=== PATIENT | female | born 1945 | race Caucasian/White ===

== ENCOUNTER 2017-10-14 16:40 | Emergency (ER) | payer OTHER ==
--- OUTSIDE RECORDS SUMMARY | 2017-10-14 16:43 | XMS REPORT | Clinical Summary ---
:1945 Author Organization [facility] Address [address] [place] [address] Care Team Providers Name Role Phone Jai Hall MD Primary Care Provider Allergies Active Allergy Reactions Severity Noted Date Comments Adhesive Tape-Silicones 06/08/2017 Skin sensitivity=redness Sulfa (Sulfonamide Rash Low 09/03/2016 Antibiotics) Current Medications Prescription Sig. Disp. Refills Start Date End Date Status atorvastatin Take 40 mg by Active (LIPITOR) 40 MG mouth daily. tablet losartan-hydrochloro Take 1 tablet Active thiazide (HYZAAR) by mouth daily. 100-12.5 mg per tablet aspirin (ECOTRIN) 81 Take 81 mg by Active MG enteric coated mouth daily. tablet omega-3 acid ethyl Take 1 g by Active esters (LOVAZA) 1 mouth 2 (two) gram capsule times a day. cholecalciferol, Take 2,000 Active vitamin D3, (VITAMIN Units by mouth D3) 2,000 unit daily. capsule capsule omeprazole Take 40 mg by Active (PriLOSEC) 40 MG mouth daily. capsule L. Take 1 mg by Active ACIDOPHILUS/BIFIDO mouth daily. LONGUM (PROBIOTIC PEARLS ORAL) FOLIC Take by mouth. Active ACID/MULTIVIT-MIN/JA TEIN (CENTRUM SILVER ORAL) ASCORBATE CALCIUM Take by mouth. Active (VITAMIN C ORAL) multivitamins & Take by mouth Discontinued minerals-ferrous daily. 7 gluconate 9 mg iron/15 mL liquid CALCIUM Take 1 mg by Discontinued CARBONATE/VITAMIN D3 mouth daily. 8 (CALTRATE 600 + D ORAL) ascorbic Take 1 mg by Discontinued ceiu-uvinibss-iur-MS mouth daily. 7 M 1,000-1,000 mg powder effervescent in packet L. Take by mouth. Discontinued ACIDOPHILUS/PECTIN, 7 CITRUS (ACIDOPHILUS PROBIOTIC ORAL) metroNIDAZOLE Take 1 tablet 42 tablet 0 06/25/2017 Discontinued (FLAGYL) 500 MG (500 mg total) 8 tablet by mouth 3 (three) times a day for 14 days. levoFLOXacin Take 1 tablet 14 tablet 0 06/26/2017 Discontinued (LEVAQUIN) 750 MG (750 mg total) 8 tablet by mouth daily for 14 days. ondansetron ODT Take 1 tablet 60 tablet 1 06/25/2017 Discontinued (ZOFRAN ODT) 4 MG (4 mg total) by 8 disintegrating mouth every 8 tablet (eight) hours as needed for nausea or vomiting for up to 30 days. SUPREP BOWEL PREP Take 2 Bottles 354 mL 0 06/28/2017 KIT 17.5-3.13-1.6 (354 mL total) 8 gram recon soln by mouth once for 1 dose. Take as directed by physician traMADol (ULTRAM) 50 Take 1 tablet 25 tablet 0 07/09/2017 mg tablet (50 mg total) 8 by mouth every 6 (six) hours as needed for moderate pain for up to 5 days. Active Problems Problem Noted Date Abscess of sigmoid colon due to diverticulitis 07/06/2017 Diverticulitis of large intestine with abscess without bleeding 06/22/2017 Preop cardiovascular exam 06/10/2017 Essential hypertension 06/10/2017 HLD (hyperlipidemia) 06/10/2017 Encounters Date Type Specialty Care Team Description 08/23/2017 Procedure visit General Surgery Ulises Huff Diverticulitis of MD Hilario large intestine without perforation or abscess without bleeding (Primary Dx) 07/21/2017 Office Visit General Surgery Ulises Huff Diverticulitis sulaiman Rich MD large intestine with Alagugurusamy, abscess without Rosanne bleeding (Primary Dx) CHELSEY Munroe 07/20/2017 Orders Only General Surgery Ulises Huff MD 07/15/2017 Orders Only General Surgery Ulises Huff Diarrhea, unspecified MD Hilario type (Primary Dx) 07/06/2017 - Hospital Encounter General Surgery Ulises Huff Abscess of sigmoid 07/09/2017 MD Hilario colon due to diverticulitis 07/06/2017 Procedure Pass General Surgery 07/06/2017 Surgery General Surgery Ulises Huff ROBOT-ASSISTED MD Hilario LAPAROSCOPIC ANTERIOR COLON RESECTION WITH SPLENIC FLEXURE TAKEDOWN 06/28/2017 Orders Only General Surgery Ulises Huff MD 06/23/2017 Anesthesia Event General Surgery [facility] Liza smallwood, MARCY 06/22/2017 - Hospital Encounter Orthopedic Surgery Ruthie Gilliland Diverticulitis of large intestine with abscess without bleeding (Primary Dx); 06/25/2017 MD Chata Hypokalemia Evon Connolly MD 06/11/2017 Orders Only Cardiology Bell, Mack Cabezas MD 06/10/2017 Office Visit Cardiology Johan Means Preop cardiovascular exam ( Primary Dx); MD Kp Essential hypertension; Negrete Dalton Hyperlipidemia, unspecified hyperlipidemia type MD Daniel 06/09/2017 Transcribe Orders Cardiology Johan Means Undiagnosed disease MD Kp or syndrome present (Primary Dx) 06/08/2017 Pre-Admit Testing Pre-Admission Ulises Huff Preop testing Appointment Testing MD Hilario (Primary Dx) 04/29/2017 Orders Only General Surgery Ulises Huff MD 04/27/2017 Office Visit General Surgery Ulises Huff Diverticulitis of large intestine with abscess without bleeding (Primary Dx); MD Hilario Left lower quadrant abdominal tenderness with rebound tenderness after 10/13/2016 Immunizations Name Dates Previously Given Next Due FLUCELVAX QUAD PF (0.5mL syringe) 07/07/2017 Family History Medical History Relation Name Comments Heart attack Father age 53 Alzheimer's disease Mother Hyperlipidemia Sister age 70 Hypertension Sister age 70 Hyperlipidemia Sister age 70 Hypertension Sister age 70 Relation Name Status Comments Father age 53 Mother Sister age 70 Alive Sister age 70 Alive Social History Tobacco Use Types Packs/Day Years Used Date Never Smoker Smokeless Tobacco: Never Used Alcohol Use Drinks/Week oz/Week Comments No Sex Assigned at Date Recorded Not on file Last Filed Vital Signs Vital Sign Reading Time Taken Blood Pressure 96/60 07/21/2017 2:40 PM CRT Pulse 85 07/21/2017 2:40 PM CRT Temperature 36.5 C (97.7 F) 07/09/2017 12:45 PM CRT Respiratory Rate 18 07/09/2017 12:45 PM CRT Oxygen Saturation 94% 07/09/2017 12:45 PM CRT Inhaled Oxygen Concentration - - Weight 65.4 kg (144 lb 3 oz) 07/06/2017 6:54 AM CRT Height 165.1 cm (5' 5") 07/06/2017 6:54 AM CRT Body Mass Index 23.99 07/06/2017 6:54 AM CRT Plan of Treatment Date Type Specialty Care Team Description 02/01/2018 [place] [address] [facility] [address] [place] [address] Health Maintenance Due Date Last Done Comments COLONOSCOPY 1993 MAMMOGRAM 1993 SHINGRIX VACCINE (#1) 1993 ZOSTER VACCINE 2003 PNEUMOCOCCAL POLYSACCHARIDE VACCINE AGE 65 AND OVER 2008 PNEUMOCOCCAL-13 2008 INFLUENZA VACCINE 01/19/2018 07/07/2017 Procedures Procedure Name Priority Date/Time Associated Diagnosis Comments SD AN ELECTIVE Routine 07/06/2017 8:19 AM ENDOTRACHEAL AIRWAY CRT Procedure Note - Chris León CRNA - 07/06/2017 8:18 AM CRT Airway Date/Time: 07/06/2017 7:51 AM Performed by: CHRIS LEÓN Authorized by: GABI LIU Location: OR Urgency: Elective Difficult Airway: No Resident/VENDING MANAGER/AA: CHRIS LEÓN Performed by: resident/VENDING MANAGER/AA Preoxygenated with 100% O2: Yes Mask Ventilation: Easy mask Final Airway Type: Endotracheal airway Final Endotracheal Airway: ETT Cuffed: Yes Technique Used: Direct laryngoscopy Devices/Methods Used in Placement: Intubating stylet Insertion Site: Oral Blade Type: Levine Laryngoscope Blade/Videolaryngoscope Blade Size: 2 ETT Size (mm): 7.0 Cuff at minimum occlusion pressure: Yes Measured from: Lips ETT to Lips (cm): 21 Placement Verified by: CO2 detection, direct visualization and equal breath sounds Laryngoscopic view: Grade I - full view of glottis Rapid Sequence Induction (RSI): No Modified RSI: No Number of Attempts at Approach: 1 SIVI. ETT 7.0 placed with ease, no trauma. +etco2, no aspiration. Dentition unchanged. vss ROBOT-ASSISTED LAPAROSCOPIC 07/06/2017 7:30 AM CRT Abscess of sigmoid colon due ANTERIOR COLON RESECTION WITH to diverticulitis SPLENIC FLEXURE TAKEDOWN Case Notes XI, PINPOINT, AIR SEAL Special Needs XI, PINPOINT, AIR SEAL CONSULT TO OSTOMY Routine 07/06/2017 6:41 AM CARE NURSE CRT CV STRESS TEST Routine 06/10/2017 1:11 PM Undiagnosed disease Results for this CRT or syndrome present procedure are in the results section. after 10/13/2016 Results [facility] papsmear custom order (07/15/2017)Estimated GFR (07/09/2017 5:00 AM )Only the most recent of8 resultswithin the time period is included. Component Value Ref Range GFR Non Af Amer >90 mL/min/1.73 m2 GFR Af Amer >90 mL/min/1.73 m2 Comment: Chronic kidney disease: <60 mL/min/1.73m2 Kidney failure: <15 mL/min/1.73m2 The estimated GFR is calculated from the IDMS-traceable Modification of Diet in Renal Disease Equation. The accuracy of the calculation is poor when the creatinine is normal. Calculated values >90 mL/min/1.73m2 are not reported. This equation has not been validated in children (<18 years), women, the elderly (>70 years), or ethnic groups other than Caucasians and Americans. Specimen Performing Laboratory Plasma specimen [facility] DEPARTMENT OF PATHOLOGY AND GENOMIC MEDICINE [address] [place] [id number] CBC with platelet and differential (07/09/2017 5:00 AM)Only the most recent of8 resultswithin the time period is included. Component Value Ref Range WBC 7.13 4.50 - 11.00 k/uL RBC 3.61 (L) 4.20 - 5.50 m/uL HGB 10.7 (L) 12.0 - 16.0 g/dL HCT 32.6 (L) 37.0 - 47.0 % MCV 90.3 82.0 - 100.0 fL MCH 29.6 27.0 - 34.0 pg MCHC 32.8 31.0 - 37.0 g/dL RDW - SD 52.3 37.0 - 55.0 fL MPV 10.7 8.8 - 13.2 fL Platelet count 312 150 - 400 k/uL Nucleated RBC 0.00 /100 WBC Neutrophils 60.1 39.0 - 69.0 % Lymphocytes 24.1 (L) 25.0 - 45.0 % Monocytes 10.0 0.0 - 10.0 % Eosinophils 5.3 (H) 0.0 - 5.0 % Basophils 0.4 0.0 - 1.0 % Immature granulocytes 0.1Comment: "Immature granulocytes" 0.0 - 1.0 % (promyelocytes, myelocytes, metamyelocytes) Specimen Performing Laboratory Blood [facility] DEPARTMENT OF PATHOLOGY AND [address] [address] Phosphorus level (07/09/2017 5:00 AM)Only the most recent of3 resultswithin the time period is included. Component Value Ref Range Phosphorus 3.2 2.4 - 4.5 mg/dL Specimen Performing Laboratory Plasma specimen [facility] DEPARTMENT PATHOLOGY AND [address] [address] Magnesium level (07/09/2017 5:00 AM)Only the most recent of3 resultswithin the time period is included. Component Value Ref Range Magnesium 1.8 1.6 - 2.4 mg/dL Specimen Performing Laboratory Plasma specimen [facility] DEPARTMENT PATHOLOGY AND [address] [address] Basic metabolic panel (07/09/2017 5:00 AM)Only the most recent of6 resultswithin the time period is included. Component Value Ref Range Sodium 142 135 - 148 mEq/L Potassium 3.2 (L) 3.5 - 5.0 mEq/L Chloride 101 98 - 112 mEq/L CO2 31 24 - 31 mEq/L Anion gap 10 7 - 15 mEq/L Comment: Starting from September , anion gap calculation no longer incorporates potassium. Please note the change. BUN 6 (L) 8 - 23 mg/dL Creatinine 0.6 0.5 - 0.9 mg/dL Glucose 84 65 - 99 mg/dL Calcium 8.6 (L) 8.8 - 10.2 mg/dL Specimen Performing Laboratory Plasma specimen [facility] DEPARTMENT PATHOLOGY AND [address] [address] Partial thromboplastin time, activated (07/08/2017 4:20 AM) Component Value Ref Range PTT 27.5 23.0 - 36.0 sec Comment: PTT therapeutic range for unfractionated heparin is 61.0-112.0 seconds which corresponds to Anti-Xa 0.3-0.7 U/ml. Specimen Performing Laboratory Blood [facility] DEPARTMENT OF PATHOLOGY AND [facility] MEDICINE [address] [place] [address] Prothrombin time with INR (07/08/2017 4:20 AM) Component Value Ref Range Prothrombin time 13.3 12.0 - 15.0 sec INR 1.0 Comment: The International Normalized Ratio (INR) is a therapeutic monitoring tool for patients who are stable on oral anticoagulant therapy. An INR of 2.0-3.0 is suggested for deep vein thrombosis/pulmonary embolism. Specimen Performing Laboratory Blood [facility] DEPARTMENT OF PATHOLOGY AND [address] [address] Surgical pathology request (07/06/2017 1:50 PM) Component Value Ref Range Surgical pathology report See link below for PDF Lab Report Result status This is Final Report to [id number] [facility] [place] [address] Type and screen (07/06/2017 7:50 AM)Only the most recent of2 resultswithin the time period is included. Component Value Ref Range ABO grouping A Rh type POS Antibody screen (gel) NEG Specimen Performing Laboratory [facility] DEPARTMENT PATHOLOGY [address] [address] Vancomycin level, trough (06/24/2017 8:40 PM) Component Value Ref Range Vancomycin, trough 6.6 (L) 10.0 - 20.0 ug/mL Comment: Therapeutic Ranges: Peak 30.0 - 40.0 ug/mL Vuxqtn85.0 - 20.0 ug/mL Specimen Performing Laboratory Serum [facility] DEPARTMENT OF PATHOLOGY AND [facility] MEDICINE [address] [place] [id number] Manual differential (06/23/2017 4:00 AM)Only the most recent of2 resultswithin the time period is included. Component Value Ref Range Manual differential PERFORMED Neutrophils 69.0 39.0 - 69.0 % Lymphocytes 20.0 (L) 25.0 - 45.0 % Monocytes 11.0 (H) 0.0 - 10.0 % Eosinophils 0.0 0.0 - 5.0 % Basophils 0.0 0.0 - 1.0 % Metamyelocytes 0 % Promyelocytes 0 % Platelet slide review Caitlin adequate Toxic granulation Slight Anisocytosis Moderate Ovalocytes Moderate Enlarged platelets Moderate (A) Giant platelets Occasional Specimen Performing Laboratory [facility] DEPARTMENT OF PATHOLOGY AND GENOMIC MEDICINE [address] [place] [address] CT Abdomen Pelvis W Contrast (06/22/2017 3:00 PM) Specimen Performing Laboratory [facility] [address] [place] [address] Narrative EXAMINATION:CT ABDOMEN PELVIS W CONTRAST CLINICAL HISTORY:hx diverticultis with [address] 04 16 17 TECHNIQUE: Multiple axial images of the abdomen and pelvis were obtained following intravenous administration of iodinated contrast. Sagittal and coronal computerized reformatted images were also obtained..All CT images were acquired using radiation dose lowering technique with automated exposure control and / or iterative reconstruction. COMPARISON:None IMPRESSION: ABDOMEN: 1. Small zone of mucous plugging in the posterior basal subsegmental bronchi of the right lower lobe, with adjacent airspace opacity, indicating aspiration and associated mild pneumonia. Follow-up to ensure resolution recommended. Mild scarring in the left lung base which is otherwise rolled. 2.A 10 cm long segment of the majority of the sigmoid demonstrating wall thickness, diverticula, and adjacent inflammation and free fluid, indicating acute diverticulitis. As well, there is a mural abscess along the mesenteric wall and proximal sigmoid colon measuring 2.8 cm, series 2 image 109, and series 301 images 31 and 32. Smaller mural abscesses are noted more distally in the sigmoid colon, measuring 2.5 x 1.3 cm each, series 2 image 110. No drainable fluid collection is identified. Follow- up to ensure complete resolution is recommended. 3.The inflammatory change barely abuts the posterior wall of the urinary bladder towards the dome, with mild reactive wall thickening, though there is no gas present within the urinary bladder lumen to indicate a colovesical fistula at this time. Follow-up to ensure resolution of the wall thickening is recommended however. 4.Punctate radiodensities in the right lower quadrant abdomen compatible with appendectomy. Bowel loop show no evidence of obstruction. 5.Liver mildly enlarged, 20 cm in length, without focal lesion identified. Cholecystectomy. 6.Prominence of the intrahepatic bile ducts especially the left hepatic lobe, and the common bile duct is nondilated measuring 10.5 mm. This may be reservoir effect postcholecystectomy, though correlation with LFTs advised. Ectasia of the pancreatic duct measuring 3.5 mm, likely from senescence. 7.Pancreas otherwise unremarkable. Spleen, adrenal glands demonstrate nothing unusual. 8.The abdominal aorta is heavily calcified, though nonaneurysmal. 9.Tiny cyst or benign angiomyolipoma in the mid left kidney. A simple cyst in the upper pole right kidney measuring 3.2 cm. No hydronephrosis on either side. PELVIS: 1. Small amount of free fluid in the pelvis related to the acute diverticulitis. Some shotty periaortic lymph nodes are likely reactive. 2.The urinary bladder is mostly collapsed. Hysterectomy. 3.Small bilateral inguinal hernias each containing fat only. 4.Discogenic endplate change at L2-3 with degenerative disc disease and a Schmorl's node in the superior endplate of L3. There is pronounced degenerative disc disease at L4-5. Levoconvex lumbar spine scoliosis. SUMMARY: Acute sigmoid diverticulitis with intramural abscesses as detailed above. No evidence of perforation or extraluminal abscess or drainable fluid collection. Inflammatory change abutting the urinary bladder posteriorly with secondary inflammation, though no colovesical fistula is present at this time. Follow-up to ensure resolution is recommended. Borderline dilated bile ducts, and other incidental findings, see above. [facility]-[id number] Procedure Note [facility], Radiology Results Incoming - 06/22/2017 3:33 PM CRT EXAMINATION: CT ABDOMEN PELVIS W CONTRAST CLINICAL HISTORY: hx diverticultis with [address] 10 27 17 TECHNIQUE: Multiple axial images of the abdomen and pelvis were obtained following intravenous administration of iodinated contrast. Sagittal and coronal computerized reformatted images were also obtained.. All CT images were acquired using radiation dose lowering technique with automated exposure control and / or iterative reconstruction. COMPARISON: None IMPRESSION: ABDOMEN: 1. Small zone of mucous plugging in the posterior basal subsegmental bronchi of the right lower lobe, with adjacent airspace opacity, indicating aspiration and associated mild pneumonia. Follow-up to ensure resolution recommended. Mild scarring in the left lung base which is otherwise rolled. 2. A 10 cm long segment of the majority of the sigmoid demonstrating wall thickness, diverticula, and adjacent inflammation and free fluid, indicating acute diverticulitis. As well, there is a mural abscess along the mesenteric wall and proximal sigmoid colon measuring 2.8 cm, series 2 image 109, and series 301 images 31 and 32. Smaller mural abscesses are noted more distally in the sigmoid colon, measuring 2.5 x 1.3 cm each, series 2 image 110. No drainable fluid collection is identified. Follow-up to ensure complete resolution is recommended. 3. The inflammatory change barely abuts the posterior wall of the urinary bladder towards the dome, with mild reactive wall thickening, though there is no gas present within the urinary bladder lumen to indicate a colovesical fistula at this time. Follow-up to ensure resolution of the wall thickening is recommended however. 4. Punctate radiodensities in the right lower quadrant abdomen compatible with appendectomy. Bowel loop show no evidence of obstruction. 5. Liver mildly enlarged, 20 cm in length, without focal lesion identified. Cholecystectomy. 6. Prominence of the intrahepatic bile ducts especially the left hepatic lobe , and the common bile duct is nondilated measuring 10.5 mm. This may be reservoir effect postcholecystectomy, though correlation with LFTs advised. Ectasia of the pancreatic duct measuring 3.5 mm, likely from senescence. 7. Pancreas otherwise unremarkable. Spleen, adrenal glands demonstrate nothing unusual. 8. The abdominal aorta is heavily calcified, though nonaneurysmal. 9. Tiny cyst or benign angiomyolipoma in the mid left kidney. A simple cyst in the upper pole right kidney measuring 3.2 cm. No hydronephrosis on either side. PELVIS: 1. Small amount of free fluid in the pelvis related to the acute diverticulitis. Some shotty periaortic lymph nodes are likely reactive. 2. The urinary bladder is mostly collapsed. Hysterectomy. 3. Small bilateral inguinal hernias each containing fat only. 4. Discogenic endplate change at L2-3 with degenerative disc disease and a Schmorl's node in the superior endplate of L3. There is pronounced degenerative disc disease at L4-5. Levoconvex lumbar spine scoliosis. SUMMARY: Acute sigmoid diverticulitis with intramural abscesses as detailed above. No evidence of perforation or extraluminal abscess or drainable fluid collection. Inflammatory change abutting the urinary bladder posteriorly with secondary inflammation, though no colovesical fistula is present at this time. Follow-up to ensure resolution is recommended. Borderline dilated bile ducts, and other incidental findings, see above. [facility]-[id number] Urinalysis screen and microscopy, with reflex to culture (06/22/2017 1:20 PM) Component Value Ref Range Specimen site Clean catch Color, UA Yellow Appearance, UA Clear Specific gravity, UA 1.010 1.001 - 1.035 pH, UA 7.0 5.0 - 8.5 Protein, UA Negative Negative Glucose, UA Negative Negative Ketones, UA Negative Negative Bilirubin, UA Negative Negative Blood, UA Small (A) Negative Nitrite, UA Negative Negative Urobilinogen, UA <2.0 <2.0 Leukocyte esterase, UA Negative Negative Epithelial cells, UA 2 /HPF WBC, UA 2 0 - 4 /HPF RBC, UA <1 0 - 2 /HPF Bacteria, UA Few None seen Yeast, UA None seen Yeast with pseudohyphae, UA None seen Specimen Performing Laboratory Urine DEPARTMENT OF PATHOLOGY AND [facility] MEDICINE[address] [address] Lipase level (06/22/2017 1:20 PM) Component Value Ref Range Lipase 52 13 - 60 U/L Specimen Performing Laboratory Serum [facility] OF PATHOLOGY AND [facility] MED[facility]INE[address] [address] Lactic acid level (06/22/2017 1:20 PM) Component Value Ref Range Lactic acid 1.6 0.5 - 2.2 mmol/L Specimen Performing Laboratory Blood [facility] PATHOLOGY AND [address] [address] Amylase level (06/22/2017 1:20 PM) Component Value Ref Range Amylase 45 30 - 115 U/L Specimen Performing Laboratory Serum [facility] PATHOLOGY AND [address] [address] Comprehensive metabolic panel (06/22/2017 1:20 PM)Only the most recent of2 resultswithin the time period is included. Component Value Ref Range Sodium 137Comment: Lytes performed on the istat 135 - 148 mEq/L analyzer. sek Potassium 3.2 (L) 3.5 - 5.0 mEq/L Chloride 94 (L) 99 - 109 mEq/L CO2 30 24 - 31 mEq/L Anion gap 13 7 - 15 mEq/L Comment: Starting from September , anion gap calculation no longer incorporates potassium. Please note the change. BUN 13 8 - 24 mg/dL Creatinine 0.8 0.5 - 1.5 mg/dL Glucose 93 65 - 99 mg/dL Calcium 9.6 8.6 - 10.6 mg/dL Protein 7.2 6.3 - 8.2 g/dL Albumin 3.7 3.5 - 5.0 g/dL A/G ratio 1.1 0.7 - 3.8 Alkaline phosphatase 78 30 - 115 U/L AST 18 15 - 46 U/L ALT 18 10 - 55 U/L Total bilirubin 0.4 0.2 - 1.2 mg/dL Specimen Performing Laboratory Plasma specimen DEPARTMENT OF PATHOLOGY AND GENOMIC MEDICINE, [place] [id number] [facility] [place] [address] Clinic Performed exercise treadmill stress (no imaging) (06/10/2017 1:11 PM) Component Value Ref Range Resting HR 90 Resting BP Peak MET Achieved 10.2 Protocol Name BRUCE2 Time in Exercise Phase 00:09:04 Max Systolic BP 168 Max Diastolic BP 72 Max Heart Rate 160 Max Predicted Heart Rate 146 Target HR Formula (220 - Age)*100% Test Indication Arrhy During Ex No Arrhythmias ECG Interp Before EX Normal ECG Interp During Ex none Ex Summary Comment Normal stress test Chest Pain Statement No Chest Pain Overall HR Response to Exercise Normal Overall HR Response To Exercise Overall BP Response To Exercise Normal Resting BP with Appropriate Response Reason for Termination Fatigue Stress Test Impression --Mccollum Treadmill Score of 9.-Mccollum Treadmill Score suggests low risk for cardiac events over next 12 months.- Specimen Performing Laboratory [facility] MUSE [address] [place] [address] ECG Pre/Post Op (06/08/2017 10:56 AM) Component Value Ref Range Ventricular rate 70 Atrial rate 70 SD interval 164 QRSD interval 78 QT interval 406 QTC interval 438 P axis 1 20 QRS axis 1 64 T wave axis 70 EKG impression Normal sinus rhythm-Normal ECG-In automated comparison with ECG of 03-SEP-2016 08:31,-No significant change was found- Specimen Performing Laboratory [facility] MUSE [address] [place] [address] Occult blood, stool (04/18/2017) Specimen Performing Laboratory Stool Miscellaneous Lab Result (04/16/2017) Specimen Performing Laboratory Blood Urine culture (04/16/2017) Specimen Performing Laboratory Urine after 10/13/2016 Insurance Payer Benefit Plan / Group Subscriber ID Type Phone Address MEDICARE MEDICARE PART A AND B xxxxxxxxxx Medicare [place], [place] AETNA AETNA [facility] INDEMNITY xxxxxxxxx Indemnity Home: [address] [phone] [place], [place] [phone]
--- NOTE | 2017-10-14 17:48 | RAD REPORT ---
EXAM DESCRIPTION: CT - Stone Protocol - 10/14/2017 5:29 pm CLINICAL HISTORY: Abdominal pain. With vomiting oral all COMPARISON: 2016 TECHNIQUE: Computed axial tomography of the abdomen pelvis was obtained without oral or IV contrast. Lack of IV and oral contrast limits evaluation of solid organs, bowel, and vessels. Coronal reformat tequila images were obtained and reviewed. All CT scans are performed using dose optimization technique as appropriate and may include automated exposure control or mA/KV adjustment according to patient size. FINDINGS: A renal calculus is not seen. An ureteral calculus is not noted. A bladder calculus is not present. A right renal cyst is present. The liver, spleen, pancreas and adrenals appear grossly normal Postsurgical changes involve the colon. Within the posterior lower pelvis is a fluid collection conta ining air measuring 3.5 x 1.5 centimeters. A small amount of ascites and presacral edema lies adjacen t to this. IMPRESSION: 3.5 x 1.5 centimeter fluid collection containing air within the posterior pelvis may rep resent an abscess. Probably less likely represents normal unopacified bowel. Prior to any interventio n a would be recommended that the patient have a CT scan of the pelvis with oral and rectal contrast to exclude that this represents bowel
[2017-10-14 18:07] LABS: Absolute Lymphocytes (CBC) 0.8 K/uL (0.7-4.9); Absolute Monocytes 0.2 K/uL (0.1-1.3); Absolute Neutrophil 5.2 K/uL (1.8-8.0); Basophils % 0.1 % (0-1.3); Hematocrit 42.3 % (36.0-45.0); MCH 30.5 pg (27.0-35.0); MCV 88.9 fL (80-100); MPV 8.7 fL (7.6-11.3); Monocytes % 3.7 % (3.3-12.3); RBC Red Blood Cell Count 4.76 M/uL (3.86-4.86)
[2017-10-14 18:17] LABS: Bicarbonate 30 mEq/L (21-31); Glucose Level 131 mg/dL (65-120); Lipase 21 U/L (22-51); Potassium 3.6 mEq/L (3.6-5.0); Sodium Level 136 mEq/L (135-145)
[2017-10-14 18:23] LABS: ALT/SGPT 19 IU/L (10-60); AST/SGOT 23 IU/L (10-42); Albumin 4.6 g/dL (3.2-5.5); Alkaline Phosphatase 76 IU/L (42-121); BUN Blood Urea Nitrogen 16 mg/dL (6-20); Bilirubin Direct 0.1 mg/dL (0-0.2); Bilirubin Total 0.7 mg/dL (0.3-1.2); Protein, Total 8.1 g/dL (6.0-8.3)
[2017-10-14] MEDS ORDERED: ONDANSETRON 4 MG/2 ML VIAL ONE ×2 (18:27→20:25)
[2017-10-14] MEDS ORDERED: NA CHLORIDE 0.9% 1,000 ML ONE (18:27)
[2017-10-14 20:49] LABS: Urine Blood 2+ (NEG); Urine Glucose NEGATIVE (NEG); Urine Protein NEGATIVE (NEG)
[2017-10-14 20:58] LABS: Urine Bacteria <20 /HPF (<20); Urine Culture Reflex Order NOT NEEDED
--- NOTE | 2017-10-14 22:43 | RAD REPORT ---
EXAM DESCRIPTION: CT - Pelvis Wo Cont - 10/14/2017 10:33 pm CLINICAL HISTORY: Portable prostate carcinoma COMPARISON: CT scan earlier on the same date TECHNIQUE: Computed axial tomography of the pelvis was obtained. Oral and rectal contrast was given All CT scans are performed using dose optimization technique as appropriate and may include automated exposure control or mA/KV adjustment according to patient size. FINDINGS: 30 x 15 millimeter fluid collection containing air within the posterior pelvis does not co ntain contrast abdomen administration of rectal and oral contrast. IMPRESSION: A 30 x 15 millimeter abscess within the posterior pelvis
[2017-10-14] MEDS ORDERED: METRONIDAZOLE 500mg IVPB 500 MG/100 ML BAG IV ONE (23:04)
[2017-10-14] MEDS ORDERED: Levofloxacin 750mg IV 750 MG/150 ML BAG IV ONE (23:30)
--- NOTE | 2017-10-15 00:24 | EDPHYS ---
Physician Documentation [facility] Name: Sarah Rodriguez Age: 72 yrs Sex: Female : 1945 Arrival Date: 10/14/2017 Time: 16:42 Bed 6 Private MD: Jai Hall T ED Physician Selvin Lynn HPI: 10/14 19:05 This 72 yrs old Female presents to ER via Ambulatory with complaints of cp Vomiting. 19:05 The patient presents to the emergency department with nausea, with "dry heaves", cp vomiting, that is continuous. Onset: The symptoms/episode began/occurred last night. Possible causes: unknown. Associated signs and symptoms: Pertinent positives: abdominal pain, loose stools, Pertinent negatives: constipation, dysuria, fever, flatulence, GI bleeding. Severity of symptoms: in the emergency department the symptoms are unchanged despite home interventions. Patient reports history of colon resection surgery [address] Huff \\[facility] for diverticular abscess. Historical: - Allergies: 16:50 Sulfa (Sulfonamide Antibiotics); aj - Home Meds: 16:50 atorvastatin 40 mg oral tab 1 tab once daily [Active]; losartan-hydrochlorothiazide aj 100-12.5 mg oral tab 1 tab once daily [Active]; Ecotrin 81 mg Oral once daily [Active]; omeprazole 40 mg Oral cpDR once daily [Active]; - PMHx: 16:50 Hyperlipidemia; Hypertension; Diverticulitis; aj - PSHx: 16:50 colon resection; Cholecystectomy; Knee surgery; Appendectomy; Hysterectomy; aj - Immunization history:: Adult Immunizations up to date. - Social history:: Smoking status: Patient/guardian denies using tobacco. ROS: 19:10 Constitutional: Positive for poor PO intake, Negative for body aches, chills, fever. cp 19:10 Eyes: Negative for injury, pain, redness, and discharge. cp 19:10 ENT: Negative for drainage from ear(s), ear pain, sore throat, difficulty swallowing, difficulty handling secretions. 19:10 Cardiovascular: Negative for chest pain, edema, palpitations. 19:10 Respiratory: Negative for cough, shortness of breath, wheezing. 19:10 Abdomen/GI: Positive for abdominal pain, nausea, vomiting, anorexia, loose stools, Negative for constipation, black/tarry stool, rectal bleeding. 19:10 Back: Negative for pain at rest, pain with movement, radiated pain. 19:10 Skin: Negative for cellulitis, rash. 19:10 Neuro: Negative for altered mental status, dizziness, headache, weakness. 19:10 All other systems are negative. Exam: 19:15 Constitutional: The patient appears in no acute distress, alert, awake, cp non-diaphoretic, non-toxic, well developed, well nourished, uncomfortable. 19:15 Head/Face: Normocephalic, atraumatic. Eyes: Pupils equal round and reactive to light, cp extra-ocular motions intact. Lids and lashes normal. Conjunctiva and sclera are non-icteric and not injected. Cornea within normal limits. Periorbital areas with no swelling, redness, or edema. ENT: Nares patent. No nasal discharge, no septal abnormalities noted. Tympanic membranes are normal and external auditory canals are clear. Oropharynx with no redness, swelling, or masses, exudates, or evidence of obstruction, uvula midline. Mucous membranes moist. Neck: Trachea midline, no thyromegaly or masses palpated, and no cervical lymphadenopathy. Supple, full range of motion without nuchal rigidity, or vertebral point tenderness. No Meningismus. Chest/axilla: Normal chest wall appearance and motion. Nontender with no deformity. No lesions are appreciated. 19:15 Cardiovascular: Rate: normal, Rhythm: regular, Edema: is not appreciated, JVD: is not appreciated. 19:15 Respiratory: the patient does not display signs of respiratory distress, Respirations: normal, no use of accessory muscles, no retractions, no splinting, no tachypnea, labored breathing, is not present, Breath sounds: are clear throughout, no decreased breath sounds, no stridor, no wheezing. 19:15 Abdomen/GI: Inspection: abdomen appears normal, Bowel sounds: active, all quadrants, Palpation: soft, in all quadrants, moderate abdominal tenderness, in all quadrants, rebound tenderness, is not appreciated, involuntary guarding, is not appreciated. 19:15 Back: pain, is absent, ROM is normal. 19:15 Skin: cellulitis, is not appreciated, no rash present. 19:15 Neuro: Orientation: to person, place \\T\\ time. Mentation: lucid, able to follow commands, Cerebellar function: is grossly normal, Motor: moves all fours, strength is normal, Sensation: no obvious gross deficits. Vital Signs: 16:50 BP 153 / 95; Pulse 90; Resp 20; Temp 99.2; Pulse Ox 98% on R/A; Weight 61.23 kg; Height aj 5 ft. 6 in. (167.64 cm); Pain 0/10; 19:00 BP 149 / 74; Pulse 74; Resp 15; Pulse Ox 100% ; bp 20:00 BP 116 / 82; Pulse 73; Resp 18; Pulse Ox 97% ; bp 22:00 BP 150 / 74; Pulse 74; Resp 16; Pulse Ox 98% ; bp 23:00 BP 147 / 97; Pulse 77; Resp 18; Pulse Ox 97% ; bp 10/15 01:00 BP 142 / 65; Pulse 83; Resp 16; Pulse Ox 97% ; bp 10/14 16:50 Body Mass Index 21.79 (61.23 kg, 167.64 cm) aj MDM: 10/14 17:11 Patient medically screened. 22:58 Differential diagnosis: gastritis, pancreatitis, appendicitis, diverticulitis, viral cp gastroenteritis, gastroenteritis. Data reviewed: vital signs, nurses notes, lab test result(s), radiologic studies, CT scan. Counseling: I had a detailed discussion with the patient and/or guardian regarding: the historical points, exam findings, and any diagnostic results supporting the discharge/admit diagnosis, radiology results, the need to transfer to another facility. 23:56 Physician consultation: Dr Mcallister was called at 23:56, was contacted at 23:56, regarding snw regarding transfer, [facility], and will see patient in inpatient room. 10/15 00:22 Physician consultation: Dr Asif was called at 00:22, was contacted at 00:22, regarding snw regarding transfer, to [facility]. would like admission per Dr. Dr Hugo Asif kindly accepts pt in transfer. 00:22 Special discussion: Dr. Ulises Huff performed bowel resection a few months ago 2nd to snw perforated diverticulum, thus transfer back to [facility].. 10/14 17:16 Order name: Basic Metabolic Panel; Complete Time: 20:08 gs 10/14 20:08 Interpretation: Normal except: CL 97; GLUC 131. cp 10/14 17:16 Order name: CBC with Diff; Complete Time: 20:08 10/15 00:13 Interpretation: Normal except: ALDO% 83.2; LYM% 13.0; BASOA 0.0. snw 10/14 17:16 Order name: Hepatic Function; Complete Time: 20:08 gs 10/14 17:16 Order name: Lipase; Complete Time: 20:08 10/14 17:16 Order name: Urine Microscopic Only; Complete Time: 20:59 gs 10/14 20:35 Order name: Urine Dipstick--Ancillary (enter results); Complete Time: 20:59 ak1 10/14 17:16 Order name: CT Stone Protocol; Complete Time: 17:56 gs 10/14 20:58 Order name: Pelvis Wo Cont; Complete Time: 22:52 EDMS 10/14 17:16 Order name: IV Saline Lock; Complete Time: 18:02 10/14 17:16 Order name: Labs collected and sent; Complete Time: 18:02 10/14 17:16 Order name: Urine Dipstick-Ancillary (obtain specimen); Complete Time: 20:34 10/14 22:53 Order name: NPO; Complete Time: 23:01 cp Administered Medications: 10/14 18:33 Drug: Zofran 4 mg Route: IVP; Site: right wrist; ss 20:29 Follow up: Response: Nausea is decreased bp 18:34 Drug: NS 0.9% 1000 ml Route: IV; Rate: 1 bolus; Site: right wrist; ss 10/15 00:26 Follow up: IV Status: Completed infusion bp 10/14 20:28 Drug: Zofran 4 mg Route: IVP; Site: right wrist; bp 23:01 Follow up: Response: Nausea is decreased bp 23:07 Drug: metroNIDAZOLE 500 mg Volume: 100 ml; Route: IVPB; Infused Over: 30 mins; Site: bp right wrist; 10/15 00:25 Follow up: IV Status: Completed infusion bp 10/14 23:20 Drug: LevaQUIN 750 mg Volume: 150 ml; Route: IVPB; Infused Over: 90 mins; Site: right bp wrist; 10/15 01:03 Follow up: IV Status: Completed infusion bp 00:35 Drug: morphine 4 mg Route: IVP; Site: right wrist; bp 01:02 Follow up: Response: Pain is decreased bp 00:35 Drug: Zofran 4 mg Route: IVP; Site: right wrist; bp 01:02 Follow up: Response: Nausea is decreased bp Disposition: 10/15/17 00:23 Transfer ordered to [facility]. Diagnosis is Abscess of intestine. - Reason for transfer: Specialty. - Accepting physician is Dr. Arias. - Condition is Stable. - Problem is an acute exacerbation. - Symptoms have worsened. Addendum: 10/17/2017 18:59 Co-signature as Attending Physician, Selvin Lynn MD. g s Signatures: Dispatcher [employer] EDMS Manjula Samuel, RN RN Flower Travis, SIDING INSTALLER-C SIDING INSTALLER-Csnw Alexia Jain RN RN ss Oscar Wilson PA PA cp Starr, Gregory, MD MD gs Peltier, Brian, RN RN bp Corrections: (The following items were deleted from the chart) 10/14 20:58 17:58 Pelvis W/Cont+CT.RAD.BRZ ordered. EDPA EDPA 10/15 00:13 10/14 20:08 Normal except: ALDO% 83.2; LYM% 13.0. cp snw 10/15 00:25 00:22 Physician consultation: Dr Asif was called at 00:22, was contacted at 00:22, jeanette regarding regarding transfer, to [facility]. would like admission per Dr. Dr Hugo reid
--- NOTE | 2017-10-15 00:24 | ER ---
Nurse's Notes [facility] Name: Sarah Rodriguez Age: 72 yrs Sex: Female : 1945 Arrival Date: 10/14/2017 Time: 16:42 Bed 6 Private MD: Jai Hall T Diagnosis: Abscess of intestine Presentation: 10/14 16:48 Presenting complaint: Patient states: Vomiting since midnight last night. Patient aj reports she is intolerant of fluid or food. Transition of care: patient was not received from another setting of care. Onset of symptoms was October 13, 2017. Initial Sepsis Screen: Does the patient meet any 2 criteria? No. Patient's initial sepsis screen is negative. Does the patient have a suspected source of infection? No. Patient's initial sepsis screen is negative. Care prior to arrival: None. 16:48 Method Of Arrival: Ambulatory 16:48 Acuity: NARCISA 3 aj Triage Assessment: 16:50 General: Appears in no apparent distress. comfortable, Behavior is calm, cooperative, aj appropriate for age. Pain: Denies pain. Neuro: Level of Consciousness is awake, alert, obeys commands, Oriented to person, place, time, situation, Appropriate for age. Respiratory: Airway is patent Respiratory effort is even, unlabored, Respiratory pattern is regular, symmetrical. GI: Reports diarrhea, nausea, vomiting. Derm: Skin is intact, is healthy with good turgor, Skin is pink, warm \T\ dry. normal. Historical: - Allergies: 16:50 Sulfa (Sulfonamide Antibiotics); aj - Home Meds: 16:50 atorvastatin 40 mg oral tab 1 tab once daily [Active]; losartan-hydrochlorothiazide aj 100-12.5 mg oral tab 1 tab once daily [Active]; Ecotrin 81 mg Oral once daily [Active]; omeprazole 40 mg Oral cpDR once daily [Active]; - PMHx: 16:50 Hyperlipidemia; Hypertension; Diverticulitis; aj - PSHx: 16:50 colon resection; Cholecystectomy; Knee surgery; Appendectomy; Hysterectomy; aj - Immunization history:: Adult Immunizations up to date. - Social history:: Smoking status: Patient/guardian denies using tobacco. Screenin:50 Abuse screen: Denies threats or abuse. Denies injuries from another. Nutritional sg screening: No deficits noted. Tuberculosis screening: No symptoms or risk factors identified. Never had TB. Fall Risk None identified. Assessment: 17:00 Reassessment: Patient appears in no apparent distress at this time. Patient and/or sg family updated on plan of care and expected duration. Pain level reassessed. Patient is alert, oriented x 3, equal unlabored respirations, skin warm/dry/pink. 18:03 General: Appears in no apparent distress. comfortable, well groomed, well developed, sg well nourished, Behavior is calm, cooperative, appropriate for age. Pain: Complains of pain in abdomen Pain does not radiate. Quality of pain is described as aching, crampy. Neuro: Level of Consciousness is awake, alert, obeys commands. 18:03 Cardiovascular: Heart tones S1 S2 present Patient's skin is warm and dry. Chest pain is sg denied. Respiratory: Airway is patent Respiratory effort is even, unlabored, Respiratory pattern is regular, symmetrical, Denies cough, shortness of breath labored breathing. GI: Abdomen is round non-distended, Bowel sounds present X 4 quads. Reports lower abdominal pain, upper abdominal pain, nausea, vomiting. GI: Reports normal bowel habits. : No signs and/or symptoms were reported regarding the genitourinary system. EENT: No signs and/or symptoms were reported regarding the EENT system. Derm: Skin is pink, warm \T\ dry. Rash noted that is red, on right cheek, nose and left cheek. Musculoskeletal: No signs and/or symptoms reported regarding the musculoskeletal system. 19:00 Reassessment: RECD REPORT FROM VERITO BROWNING. 72YO WF P/W ABD PAIN AND N/V. NO ACTIVE VOMITING bp IN ER. PO CONTRAST COMPLETED, CT PENDING. VS STABLE ON MONITOR AT THIS TIME. 21:00 Reassessment: PT IN CT. bp 22:00 Reassessment: PT RETURNED FROM CT, RAD RESULTS PENDING. ALL OTHER STUDIES COMPLETE. bp 23:30 Reassessment: ALL CURRENT ORDERS COMPLETED, AWAITING PHYSICIAN DISPO. bp 10/15 01:08 Reassessment: REPORT GIVEN TO SHARITA BROWNING \T\ [facility] T[facility] [address] 810, bp TRANSPORT PENDING. 01:19 Reassessment: PT RALPH WITH EMS FOR TRANSPORT. bp Vital Signs: 10/14 16:50 BP 153 / 95; Pulse 90; Resp 20; Temp 99.2; Pulse Ox 98% on R/A; Weight 61.23 kg; Height aj 5 ft. 6 in. (167.64 cm); Pain 0/10; 19:00 BP 149 / 74; Pulse 74; Resp 15; Pulse Ox 100% ; bp 20:00 BP 116 / 82; Pulse 73; Resp 18; Pulse Ox 97% ; bp 22:00 BP 150 / 74; Pulse 74; Resp 16; Pulse Ox 98% ; bp 23:00 BP 147 / 97; Pulse 77; Resp 18; Pulse Ox 97% ; bp 10/15 01:00 BP 142 / 65; Pulse 83; Resp 16; Pulse Ox 97% ; bp 10/14 16:50 Body Mass Index 21.79 (61.23 kg, 167.64 cm) aj ED Course: 10/14 16:42 Patient arrived in ED. as 16:42 Jai Hall MD is Private Physician. as 16:49 Triage completed. aj 16:50 Arm band placed on right wrist. Patient placed in an exam room. aj 16:54 Selvin Lynn MD is Attending Physician. gs 17:[address] via stretcher. nj 17:27 CT completed. Patient tolerated procedure well. Patient moved back from CT. nj 17:29 CT Stone Protocol In Process Unspecified. EDMS 18:01 Abraham Pinto, RN is Primary Nurse. sg 18:02 Initial lab(s) drawn, by me, sent to lab. Inserted saline lock: 22 gauge in right sg wrist, using aseptic technique. Blood collected. 19:00 Patient has correct armband on for positive identification. Placed in gown. Bed in low bp position. Call light in reach. Side rails up X2. Adult w/ patient. 19:23 Oscar Wilson PA is PHCP. cp 19:55 Riki Galarza, RN is Primary Nurse. bp 20:[address] nj 21:10 Pelvis Wo Cont In Process Unspecified. EDMS 23:58 PHCP role handed off by Oscar Wilson PA snw 23:58 lFower Bowen FNP-C is PHCP. snw 10/15 01:01 Report given to SHARITA BROWNING, S[facility]AGE TOR[facility]Z 8W 810. bp Administered Medications: 10/14 18:33 Drug: Zofran 4 mg Route: IVP; Site: right wrist; ss 20:29 Follow up: Response: Nausea is decreased bp 18:34 Drug: NS 0.9% 1000 ml Route: IV; Rate: 1 bolus; Site: right wrist; ss 10/15 00:26 Follow up: IV Status: Completed infusion bp 10/14 20:28 Drug: Zofran 4 mg Route: IVP; Site: right wrist; bp 23:01 Follow up: Response: Nausea is decreased bp 23:07 Drug: metroNIDAZOLE 500 mg Volume: 100 ml; Route: IVPB; Infused Over: 30 mins; Site: bp right wrist; 10/15 00:25 Follow up: IV Status: Completed infusion bp 10/14 23:20 Drug: LevaQUIN 750 mg Volume: 150 ml; Route: IVPB; Infused Over: 90 mins; Site: right bp wrist; 10/15 01:03 Follow up: IV Status: Completed infusion bp 00:35 Drug: morphine 4 mg Route: IVP; Site: right wrist; bp 01:02 Follow up: Response: Pain is decreased bp 00:35 Drug: Zofran 4 mg Route: IVP; Site: right wrist; bp 01:02 Follow up: Response: Nausea is decreased bp Outcome: 00:23 ER care complete, transfer ordered by . snw 01:19 Patient left the ED. bp Signatures: Dispatcher [employer] EDMS Abraham Pinto RN RN sg Myers, Amanda, RN RN aj Therrien, Shelly, MATEUS-C PRODUCTION COOK-Viviana Castro Shelby, RN RN ss Page, Corey, PA PA cp Jordan, Nathan nj Starr, Gregory, MD MD gs Peltier, Brian, RN RN bp Corrections: (The following items were deleted from the chart) 10/14 19:25 18:03 Pain: Complains of pain in abdomen Pain does not radiate. sg sg
[2017-10-15] MEDS ORDERED: ONDANSETRON 4 MG/2 ML VIAL ONE (00:30)
[2017-10-15] MEDS ORDERED: MORPHINE 4 MG/ML SYR ONE (00:30)
[2017-10-15 01:37] VITALS: TEMP 99.2
[2017-10-15 01:42] VITALS: O2SAT 97
[2017-10-15 01:43] VITALS: BP 142/65
== END 2017-10-15 01:19 | disposition short-term general hospital (02) ==
LOC: ER 16:40
DX: K63.0 Abscess of intestine (principal); I10 Essential (primary) hypertension; E78.5 Hyperlipidemia, unspecified; Z88.2 Allergy status to sulfonamides
CPT/HCPCS: 36415; 72192; 74176; 76377; 80048; 80076; 83690; 85025; 96361; 96365; 96375; 99284; J2405 ×3; J7030; 81003; 81015; 96368

== ENCOUNTER 2023-02-21 20:02 | Emergency (ER) | payer OTHER ==
--- OUTSIDE RECORDS SUMMARY | 2023-02-21 21:00 | XMS REPORT | Continuity of Care Document ---
:1945 Author Organization [facility] t Address [address] [place] [address] Care Team Providers Name Role Phone Jai Hall MD Primary Care Physician [phone] Dalton Negrete MD Attending Clinician Zahraa BROWNING, Yaa Osborn Attending Clinician Unavailable Yemi Fernandez Attending Clinician Unavailable Florentin CESAR, Alli Henriquez Attending Clinician [phone] MD DALTON NEGRETE Attending Clinician Unavailable Sandoval BROWNING, Rosanne Attending Clinician Unavailable Elise Yan MA Attending Clinician Unavailable Yemi Fernandez Admitting Clinician Unavailable DALTON NEGRETE Admitting Clinician Unavailable MD DALTON NEGRETE Admitting Clinician Unavailable Payers Payer Name Policy Type Policy Number Effective Date Expiration Date S ource Problems Condition Condition Condition Status Onset Resolution Last Treating Co mments Source Name Details Category Date Date Treatment Clinician Date Abnormal Abnormal Disease Active Overview: Me thodi nuclear nuclear 07-[address] stress stress 00:00: g of this Hospita test test 00 note l might be different from the original. Added automatic ally from request for surgery [id number] Abnormal Abnormal Disease Active [facility] di screening screening 07-[address] 00:00: Ho spita 00 l COVID-19 COVID-19 Disease Active Metho di 07-17 st 00:00: Hospita 00 l Pelvic Pelvic Disease Active [facility] fluid fluid 4-27 st collection collection 00:00: Ho spita 00 l Abscess of Abscess of Disease Active M ethodi sigmoid sigmoid [address] st colon due colon due 00:00: Hosp demetrio to to 00 l diverticul diverticul itis itis Diverticul Diverticul Disease Active 0 M ethodi itis of itis of 1 st large large 00:00: Hospita intestine intestine 00 l with with abscess abscess without without bleeding bleeding Preop Preop Disease Active 2016-06 [facility] cardiovasc cardiovasc 08-11 st ular exam ular exam 00:00: Hosp demetrio 00 l Essential Essential Disease Active 2016-06 Met hodi hypertensi hypertensi 08-11 st on on 00:00: Hospita 00 l HLD HLD Disease Active 2016-06 [facility] (hyperlipi (hyperlipi 08-11 demia) demia) 00:00: Hospita 00 l Allergies, Adverse Reactions, Alerts Allergy Allergy Status Severity Reaction(s) Onset Inactive Treating Comm ents Source Name Type Date Date Clinician Adhesive Propensi Active Other (See 2016-06 Skin Me thodi Tape-Ana Laura ty to Comments) 2-[address] icones adverse 00:00: ty, Hospita reaction 00 redness l s to drug Sulfa Propensi Active Rash [facility] (Sulfona ty to [address] mide adverse 00:00: Hospita Antibiot reaction 00 l ics) s to drug Sulfa DA Active [facility] (Sulfona 9[facility]20 [place] [facility] 00[facility]00: d Antibiot 00 [facility] sulfamet DA Active [facility] hoxazole 9-20 [place] 00:[facility]: d [facility] trimetho DA Active MA 2015- [facility] prim 9-20 [place] 00:[facility]: d 00 [facility] Sulfa DA Active MA rash [facility] (Sulfona 9-20 [place] mide 00:00: d Antibiot 00 Medical ics) Center sulfamet DA Active [place] rash [facility] hoxazole 9-20 [place] 00:[facility]: d 00 [facility] trimetho DA Active [place] rash [facility] prim 9-20 [place] 00:[facility]: d [facility] Family History Family Member Diagnosis Comments Start Date Stop Date Source Natural father [facility] mother Alzheimer[facility] Natural sister Hyperlipidemia [facility] Natural sister Hypertension [facility] Social History Social Habit Start Date Stop Date Quantity Comments Source Gender identity [facility] Sexual orientation [facility] History of Social 2022-08-30 2022-08-[address] function 00:00:00 00:00:00 Hospital Tobacco use and 2022-04-30 2022-04-30 Smokeless [facility] exposure 00:00:00 00:00:00 tobacco non-user Hospital Alcohol intake 2022-04-30 2022-04-30 Current [facility] 00:00:00 00:00:00 non-drinker of Hospital alcohol (finding) Sex Ass[birth year] At [birth year] [facility] 00:[facility] Smoking Status Start Date Stop Date Source Never smoked tobacco [facility] Medications Ordered Filled Start Stop Current Ordering Indication Dosage Frequency Signature Comments Components Source Medication Medication Date Date Medication? Clinician (SIG) Name Name losartan-2021-06 Yes 1{tbl} QD Take 1 Me [facility]odi drochloroth 2-[address] iazide 00:00: mouth Hospita (HYZAAR) 00 daily. l 100-12.5 mg per tablet rosuvastati 2021-06 Yes 40mg QD Take 1 Meth rossana n (CRESTOR) 2-22 tablet (40 st 40 MG 00:00: mg total) Hospita tablet 00 by mouth l daily. losartan-2021-06 Yes 1{tbl} QD Take 1 Me thodi drochloroth 2-[address] iazide 00:00: mouth [facility]ospita (HYZAAR) 00 daily. l 100-12.5 mg per tablet rosuvastati 2021-06 Yes 40mg QD Take 1 Meth rossana n (CRESTOR) 2-22 tablet (40 st 40 MG 00:00: mg total) Hospita tablet 00 by mouth l daily. losartan-hy 2021-06 Yes 1{tbl} QD Take 1 Me thodi drochloroth 2-[address] iazide 00:00: mouth [facility]ospita (HYZAAR) 00 daily. l 100-12.5 mg per tablet rosuvastati 2021-06 Yes 40mg QD Take 1 Meth rossana n (CRESTOR) 2-22 tablet (40 st 40 MG 00:00: mg total) Hospita tablet 00 by mouth l daily. losartan-2021-06 Yes 1{tbl} QD Take 1 Me thodi drochloroth 2-[address] iazide 00:00: mouth [facility]ospita (HYZAAR) 00 daily. l 100-12.5 mg per tablet rosuvastati 2021-06 Yes 40mg QD Take 1 Meth rossana n (CRESTOR) 2-22 tablet (40 st 40 MG 00:00: mg total) Hospita tablet 00 by mouth l daily. losartan-2021-06 Yes 1{tbl} QD Take 1 Me thodi drochloroth 2-[address] iazide 00:00: mouth [facility]ospita (HYZAAR) 00 daily. l 100-12.5 mg per tablet rosuvastati 2021-06 Yes 40mg QD Take 1 Meth rossana n (CRESTOR) 2-22 tablet (40 st 40 MG 00:00: mg total) Hospita tablet 00 by mouth l daily. losartan-2021-06 Yes 1{tbl} QD Take 1 Me thodi drochloroth 2-[address] iazide 00:00: mouth [facility]ospita (HYZAAR) 00 daily. l 100-12.5 mg per tablet rosuvastati 2021-06 Yes 40mg QD Take 1 Meth rossana n (CRESTOR) 2-22 tablet (40 st 40 MG 00:00: mg total) Hospita tablet 00 by mouth l daily. losartan-2021-06- No 1{tbl} QD Take 1 M ethodi drochloroth 2-16 12-[address] iazide 00:00: 00:00 mouth [facility]ospita (HYZAAR) 00 :00 daily. l 100-12.5 mg per tablet rosuvastati 2021-06- No 40mg QD Take 1 Met hodi n (CRESTOR) 2-16 12-21 tablet (40 s t 40 MG 00:00: 00:00 mg total) Hospit a tablet 00 :00 by mouth l daily. losartan-2021-06- No 1{tbl} QD Take 1 M ethodi drochloroth 2-16 12-[address] iazide 00:00: 00:00 mouth [facility]ospita (HYZAAR) 00 :00 daily. l 100-12.5 mg per tablet rosuvastati 2021-06- No 40mg QD Take 1 Met hodi n (CRESTOR) 2-16 12-21 tablet (40 s t 40 MG 00:00: 00:00 mg total) Hospit a tablet 00 :00 by mouth l daily. losartan-2021-06 No 1{tbl} QD Take 1 M ethodi drochloroth 2-16 12-[address] iazide 00:00: 00:00 mouth Hospita (HYZAAR) 00 :00 daily. l 100-12.5 mg per tablet rosuvastati 2021-06- No 40mg QD Take 1 Met hodi n (CRESTOR) 2-16 12-21 tablet (40 s t 40 MG 00:00: 00:00 mg total) Hospit a tablet 00 :00 by mouth l daily. losartan-2021-06 No 1{tbl} QD Take 1 M ethodi drochloroth 2-16 12-[address] iazide 00:00: 00:00 mouth Hospita (HYZAAR) 00 :00 daily. l 100-12.5 mg per tablet rosuvastati 2021-06- No 40mg QD Take 1 Met hodi n (CRESTOR) 2-16 12-21 tablet (40 s t 40 MG 00:00: 00:00 mg total) Hospit a tablet 00 :00 by mouth l daily. losartan-2021-06 No 1{tbl} QD Take 1 M ethodi drochloroth 2-16 12-[address] iazide 00:00: 00:00 mouth Hospita (HYZAAR) 00 :00 daily. l 100-12.5 mg per tablet rosuvastati 2021-06- No 40mg QD Take 1 Met hodi n (CRESTOR) 2-16 12-21 tablet (40 s t 40 MG 00:00: 00:00 mg total) Hospit a tablet 00 :00 by mouth l daily. losartan-2021-06 No 1{tbl} QD Take 1 M ethodi drochloroth 2-16 12-[address] iazide 00:00: 00:00 mouth Hospita (HYZAAR) 00 :00 daily. l 100-12.5 mg per tablet rosuvastati 2021-06 40mg QD Take 1 Met hodi n (CRESTOR) 2-16 -21 tablet (40 s t 40 MG 00:00: 00:00 mg total) Hospit a tablet 00 :00 by mouth l daily. aspirin 2021-06 Yes 81mg QD Take 81 mg Meth rossana (ECOTRIN) 1-[address] 81 MG 08:19: nightly. Hospita enteric 42 l coated tablet omega-3 2021-06 Yes 1g Q.5D Take 1 g Method i acid ethyl 1-[address] esters 08:19: (two) Hospita (LOVAZA) 1 42 times a l gram day. capsule cholecalcif 2021-06 Yes 2000U QD Take 2,000 [facility] evette, 1-[address] vitamin D3, 08:19: mouth Hospi ta (VITAMIN 42 daily. l D3) 2,000 unit capsule capsule FOLIC 2021-06 Yes 1{tbl} QD Take 1 [facility] ACID/MULTIV 1-[address] IT-MIN/LUTE 08:19: mouth Hospi ta IN (CENTRUM 42 daily. l SILVER ORAL) ASCORBATE 2021-06 Yes 1{tbl} QD Take 1 Meth rossana CALCIUM 1-[address] (VITAMIN C 08:19: mouth Hospit a ORAL) 42 daily. l zinc 50 mg 2021-06 Yes 1{tbl} QD Take 1 Met hodi tablet 1-[address] 08:19: mouth Hospita 42 daily. l omeprazole 2021-06 Yes 40mg QD Take 40 mg M ethodi (PriLOSEC) 1-[address] 40 MG 08:19: daily. Hospita capsule 42 l ixekizumab 2021-06 Yes Inject Metho di (Taltz 1-[address] Syringe) 80 08:19: skin. Hospi ta mg/mL 42 l syringe aspirin 2021-06 Yes 81mg QD Take 81 mg Meth rossana (ECOTRIN) 1-[address] 81 MG 08:19: nightly. Hospita enteric 42 l coated tablet omega-3 2021-06 Yes 1g Q.5D Take 1 g Method i acid ethyl 1-[address] esters 08:19: (two) Hospita (LOVAZA) 1 42 times a l gram day. capsule cholecalcif 2021-06 Yes 2000U QD Take 2,000 Methodi evette, 1-[address] vitamin D3, 08:19: mouth Hospi ta (VITAMIN 42 daily. l D3) 2,000 unit capsule capsule FOLIC 2021-06 Yes 1{tbl} QD Take 1 [facility] ACID/MULTIV 1-[address] IT-MIN/LUTE 08:19: mouth Hospi ta IN (CENTRUM 42 daily. l SILVER ORAL) ASCORBATE 2021-06 Yes 1{tbl} QD Take 1 Meth rossana CALCIUM 1-[address] (VITAMIN C 08:19: mouth Hospit a ORAL) 42 daily. l zinc 50 mg 2021-06 Yes 1{tbl} QD Take 1 Met hodi tablet 1-[address] 08:19: mouth Hospita 42 daily. l omeprazole 2021-06 Yes 40mg QD Take 40 mg M ethodi (PriLOSEC) 1-[address] 40 MG 08:19: daily. Hospita capsule 42 l ixekizumab 2021-06 Yes Inject Metho di (Taltz 1-[address] Syringe) 80 08:19: skin. Hospi ta mg/mL 42 l syringe aspirin 2021-06 Yes 81mg QD Take 81 mg Meth rossana (ECOTRIN) 1-[address] 81 MG 08:19: nightly. Hospita enteric 42 l coated tablet omega-3 2021-06 Yes 1g Q.5D Take 1 g Method i acid ethyl 1-[address] esters 08:19: (two) Hospita (LOVAZA) 1 42 times a l gram day. capsule cholecalcif 2021-06 Yes 2000U QD Take 2,000 [facility] evette, 1-[address] vitamin D3, 08:19: mouth Hospi ta (VITAMIN 42 daily. l D3) 2,000 unit capsule capsule FOLIC 2021-06 Yes 1{tbl} QD Take 1 [facility] ACID/MULTIV 1-[address] IT-MIN/LUTE 08:19: mouth Hospi ta IN (CENTRUM 42 daily. l SILVER ORAL) ASCORBATE 2021-06 Yes 1{tbl} QD Take 1 Meth rossana CALCIUM 1-[address] (VITAMIN C 08:19: mouth Hospit a ORAL) 42 daily. l zinc 50 mg 2021-06 Yes 1{tbl} QD Take 1 Met hodi tablet 1-[address] 08:19: mouth Hospita 42 daily. l omeprazole 2021-06 Yes 40mg QD Take 40 mg M ethodi (PriLOSEC) 1-[address] 40 MG 08:19: daily. Hospita capsule 42 l ixekizumab 2021-06 Yes Inject Metho di (Taltz 1-[address] Syringe) 80 08:19: skin. Hospi ta mg/mL 42 l syringe aspirin 2021-06 Yes 81mg QD Take 81 mg Meth rossana (ECOTRIN) 1-[address] 81 MG 08:19: nightly. Hospita enteric 42 l coated tablet omega-3 2021-06 Yes 1g Q.5D Take 1 g Method i acid ethyl 1-[address] esters 08:19: (two) Hospita (LOVAZA) 1 42 times a l gram day. capsule cholecalcif 2021-06 Yes 2000U QD Take 2,000 Methodi evette, 1-[address] vitamin D3, 08:19: mouth Hospi ta (VITAMIN 42 daily. l D3) 2,000 unit capsule capsule FOLIC 2021-06 Yes 1{tbl} QD Take 1 [facility] ACID/MULTIV 1-[address] IT-MIN/LUTE 08:19: mouth Hospi ta IN (CENTRUM 42 daily. l SILVER ORAL) ASCORBATE 2021-06 Yes 1{tbl} QD Take 1 Meth rossana CALCIUM 1-[address] (VITAMIN C 08:19: mouth Hospit a ORAL) 42 daily. l zinc 50 mg 2021-06 Yes 1{tbl} QD Take 1 Met hodi tablet 1-[address] 08:19: mouth Hospita 42 daily. l omeprazole 2021-06 Yes 40mg QD Take 40 mg M ethodi (PriLOSEC) 1-[address] 40 MG 08:19: daily. Hospita capsule 42 l ixekizumab 2021-06 Yes Inject Metho di (Taltz 1-[address] Syringe) 80 08:19: skin. Hospi ta mg/mL 42 l syringe aspirin 2021-06 Yes 81mg QD Take 81 mg Meth rossana (ECOTRIN) 1-[address] 81 MG 08:19: nightly. Hospita enteric 42 l coated tablet omega-3 2021-06 Yes 1g Q.5D Take 1 g Method i acid ethyl 1-[address] esters 08:19: (two) Hospita (LOVAZA) 1 42 times a l gram day. capsule cholecalcif 2021-06 Yes 2000U QD Take 2,000 Methodi evette, 1-[address] vitamin D3, 08:19: mouth Hospi ta (VITAMIN 42 daily. l D3) 2,000 unit capsule capsule FOLIC 2021-06 Yes 1{tbl} QD Take 1 [facility] ACID/MULTIV 1-[address] IT-MIN/LUTE 08:19: mouth Hospi ta IN (CENTRUM 42 daily. l SILVER ORAL) ASCORBATE 2021-06 Yes 1{tbl} QD Take 1 Meth rossana CALCIUM 1-[address] (VITAMIN C 08:19: mouth Hospit a ORAL) 42 daily. l zinc 50 mg 2021-06 Yes 1{tbl} QD Take 1 Met hodi tablet 1-[address] 08:19: mouth Hospita 42 daily. l omeprazole 2021-06 Yes 40mg QD Take 40 mg M ethodi (PriLOSEC) 1-[address] 40 MG 08:19: daily. Hospita capsule 42 l ixekizumab 2021-06 Yes Inject Metho di (Taltz 1-[address] Syringe) 80 08:19: skin. Hospi ta mg/mL 42 l syringe aspirin 2021-06 Yes 81mg QD Take 81 mg Meth rossana (ECOTRIN) 1-[address] 81 MG 08:19: nightly. Hospita enteric 42 l coated tablet omega-3 2021-06 Yes 1g Q.5D Take 1 g Method i acid ethyl 1-[address] esters 08:19: (two) Hospita (LOVAZA) 1 42 times a l gram day. capsule cholecalcif 2021-06 Yes 2000U QD Take 2,000 Methodi evette, 1-[address] vitamin D3, 08:19: mouth Hospi ta (VITAMIN 42 daily. l D3) 2,000 unit capsule capsule FOLIC 2021-06 Yes 1{tbl} QD Take 1 [facility] ACID/MULTIV 1-[address] IT-MIN/LUTE 08:19: mouth Hospi ta IN (CENTRUM 42 daily. l SILVER ORAL) ASCORBATE 2021-06 Yes 1{tbl} QD Take 1 Meth rossana CALCIUM 1-[address] (VITAMIN C 08:19: mouth Hospit a ORAL) 42 daily. l zinc 50 mg 2021-06 Yes 1{tbl} QD Take 1 Met hodi tablet 1-[address] 08:19: mouth Hospita 42 daily. l omeprazole 2021-06 Yes 40mg QD Take 40 mg M ethodi (PriLOSEC) 1-[address] 40 MG 08:19: daily. Hospita capsule 42 l ixekizumab 2021-06 Yes Inject Metho di (Taltz 1-[address] Syringe) 80 08:19: skin. Hospi ta mg/mL 42 l syringe losartan- 2021-06- No 1{tbl} QD Take 1 M ethodi drochloroth 1-10 12-[address] iazide 00:00: 00:00 mouth Hospita (HYZAAR) 00 :00 daily. l 100-12.5 mg per tablet rosuvastati 2021-06- No 40mg QD Take 1 Met hodi n (CRESTOR) 1-10 12-16 tablet (40 s t 40 MG 00:00: 00:00 mg total) Hospit a tablet 00 :00 by mouth l daily. losartan- 2021-06- No 1{tbl} QD Take 1 M ethodi drochloroth 1-10 12-[address] iazide 00:00: 00:00 mouth [facility]ospita (HYZAAR) 00 :00 daily. l 100-12.5 mg per tablet rosuvastati 2021-06- No 40mg QD Take 1 Met hodi n (CRESTOR) 1-10 12-16 tablet (40 s t 40 MG 00:00: 00:00 mg total) Hospit a tablet 00 :00 by mouth l daily. losartan- 2021-06- No 1{tbl} QD Take 1 M ethodi drochloroth 1-10 12-[address] iazide 00:00: 00:00 mouth [facility]ospita (HYZAAR) 00 :00 daily. l 100-12.5 mg per tablet rosuvastati 2021-06- No 40mg QD Take 1 Met hodi n (CRESTOR) 1-10 12-16 tablet (40 s t 40 MG 00:00: 00:00 mg total) Hospit a tablet 00 :00 by mouth l daily. losartan-2021-06 No 1{tbl} QD Take 1 M ethodi drochloroth 1-10 12-[address] iazide 00:00: 00:00 mouth [facility]ospita (HYZAAR) 00 :00 daily. l 100-12.5 mg per tablet rosuvastati 2021-06- No 40mg QD Take 1 Met hodi n (CRESTOR) 1-10 12-16 tablet (40 s t 40 MG 00:00: 00:00 mg total) Hospit a tablet 00 :00 by mouth l daily. losartan- 2021-06 No 1{tbl} QD Take 1 M ethodi drochloroth 1-10 12-[address] iazide 00:00: 00:00 mouth [facility]ospita (HYZAAR) 00 :00 daily. l 100-12.5 mg per tablet rosuvastati 2021-06- No 40mg QD Take 1 Met hodi n (CRESTOR) 1-10 12-16 tablet (40 s t 40 MG 00:00: 00:00 mg total) Hospit a tablet 00 :00 by mouth l daily. losartan- 2021-06- No 1{tbl} QD Take 1 M ethodi drochloroth 1-10 12-[address] iazide 00:00: 00:00 mouth [facility]ospita (HYZAAR) 00 :00 daily. l 100-12.5 mg per tablet rosuvastati 2021-06- No 40mg QD Take 1 Met hodi n (CRESTOR) 1-10 12-16 tablet (40 s t 40 MG 00:00: 00:00 mg total) Hospit a tablet 00 :00 by mouth l daily. aspirin 2020-06 Yes 81mg QD Take 81 mg Meth rossana (ECOTRIN) 1-[address] 81 MG 09:51: nightly. Hospita enteric 53 l coated tablet omega-3 2020-06 Yes 1g Q.5D Take 1 g Method i acid ethyl 06-[address] esters 09:51: (two) Hospita (LOVAZA) 1 53 times a l gram day. capsule cholecalcif 2020-06 Yes 2000U QD Take 2,000 Methodi evette, -[address] vitamin D3, 09:51: mouth Hospi ta (VITAMIN 53 daily. l D3) 2,000 unit capsule capsule FOLIC 2020-06 Yes 1{tbl} QD Take 1 [facility] ACID/MULTIV - tablet by st IT-MIN/LUTE 09:51: mouth Hospi ta IN (CENTRUM 53 daily. l SILVER ORAL) ASCORBATE 2020-06 Yes 1{tbl} QD Take 1 Meth rossana CALCIUM 06-[address] (VITAMIN C 09:51: mouth Hospit a ORAL) 53 daily. l zinc 50 mg 2020-06 Yes 1{tbl} QD Take 1 Met [facility]odi tablet 06-[address] 09:51: mouth Hospita 53 daily. l omeprazole 2020-06 Yes 40mg QD Take 40 mg M ethodi (PriLOSEC) 06-[address] 40 MG 09:51: daily. Hospita capsule 53 l ixekizumab 2020-06 Yes Inject Metho di (Taltz 06-[address] Syringe) 80 09:51: skin. Hospi ta mg/mL 53 l syringe ustekinumab 2020-06- No 45mg Q90D Inject 45 [facility] (Stelara) 06-29 11-[address] 45 mg/0.5 09:51: 00:00 the skin Hos carmen mL 53 :00 every 3 l injection (three) months. losartan-hy 2020-06 Yes 1{tbl} QD Take 1 Me thodi drochloroth -[address] iazide 00:00: mouth [facility]ospita (HYZAAR) 00 daily. l 100-12.5 mg per tablet rosuvastati 2020-06 Yes 40mg QD Take 1 Meth rossana n (CRESTOR) 06-29 tablet (40 st 40 MG 00:00: mg total) Hospita tablet 00 by mouth l daily. losartan-hy 2020-06- No 1{tbl} QD Take 1 M ethodi drochloroth 06-29 11-[address] iazide 00:00: 00:00 mouth [facility]ospita (HYZAAR) 00 :00 daily. l 100-12.5 mg per tablet rosuvastati 2020-06- No 40mg QD Take 1 Met hodi n (CRESTOR) 06-29 tablet (40 s t 40 MG 00:00: 00:00 mg total) Hospit a tablet 00 :00 by mouth l daily. losartan-2020-06- No 1{tbl} QD Take 1 M ethodi drochloroth 06-[address] iazide 00:00: 00:00 mouth [facility]ospita (HYZAAR) 00 :00 daily. l 100-12.5 mg per tablet rosuvastati 2020-06- No 40mg QD Take 1 Met hodi n (CRESTOR) 06-29 tablet (40 s t 40 MG 00:00: 00:00 mg total) Hospit a tablet 00 :00 by mouth l daily. losartan-2020-06 No 1{tbl} QD Take 1 M ethodi drochloroth 06-[address] iazide 00:00: 00:00 mouth [facility]ospita (HYZAAR) 00 :00 daily. l 100-12.5 mg per tablet rosuvastati 2020-06- No 40mg QD Take 1 Met hodi n (CRESTOR) 06-29 tablet (40 s t 40 MG 00:00: 00:00 mg total) Hospit a tablet 00 :00 by mouth l daily. losartan-2020-06 No 1{tbl} QD Take 1 M ethodi drochloroth 06-[address] iazide 00:00: 00:00 mouth [facility]ospita (HYZAAR) 00 :00 daily. l 100-12.5 mg per tablet rosuvastati 2020-06- No 40mg QD Take 1 Met hodi n (CRESTOR) 06-29 tablet (40 s t 40 MG 00:00: 00:00 mg total) Hospit a tablet 00 :00 by mouth l daily. losartan-2020-06 No 1{tbl} QD Take 1 M ethodi drochloroth 1-09 11-[address] iazide 00:00: 00:00 mouth [facility]ospita (HYZAAR) 00 :00 daily. l 100-12.5 mg per tablet rosuvastati 2020-06 No 40mg QD Take 1 Met hodi n (CRESTOR) 06-29 tablet (40 s t 40 MG 00:00: 00:00 mg total) Hospit a tablet 00 :00 by mouth l daily. losartan-hy 2020-06 No 1{tbl} QD Take 1 M ethodi drochloroth 06-[address] iazide 00:00: 00:00 mouth Hospita (HYZAAR) 00 :00 daily. l 100-12.5 mg per tablet rosuvastati 2020-06 No 40mg QD Take 1 Met hodi n (CRESTOR) 06-29 tablet (40 s t 40 MG 00:00: 00:00 mg total) Hospit a tablet 00 :00 by mouth l daily. aspirin Yes 81mg QD Take 81 mg Meth rossana (ECOTRIN) 2-[address] 81 MG 20:12: nightly. Hospita enteric 48 l coated tablet omega-3 Yes 1g Q.5D Take 1 g Method i acid ethyl 2-[address] esters 20:12: (two) Hospita (LOVAZA) 1 48 times a l gram day. capsule cholecalcif Yes 2000U QD Take 2,000 Methodi evette, 2-[address] vitamin D3, 20:12: mouth Hospi ta (VITAMIN 48 daily. l D3) 2,000 unit capsule capsule FOLIC Yes 1{tbl} QD Take 1 [facility] ACID/MULTIV 2-[address] IT-MIN/LUTE 20:12: mouth Hospi ta IN (CENTRUM 48 daily. l SILVER ORAL) ASCORBATE 0 Yes 1{tbl} QD Take 1 Meth rossana CALCIUM 2-[address] (VITAMIN C 20:12: mouth Hospit a ORAL) 48 daily. l ustekinumab 0 Yes 45mg Q90D Inject 45 M ethodi (Stelara) 2-[address] 45 mg/0.5 20:12: the skin Hosp demetrio mL 48 every 3 l injection (three) months. zinc 50 mg Yes 1{tbl} QD Take 1 Met hodi tablet 2-[address] 20:12: mouth Hospita 48 daily. l omeprazole Yes 40mg QD Take 40 mg M ethodi (PriLOSEC) 2-[address] 40 MG 20:12: daily. Hospita capsule 48 l losartan-hy Yes 1{tbl} QD Take 1 Me thodi drochloroth -[address] iazide 00:00: mouth Hospita (HYZAAR) 00 daily. l 100-12.5 mg per tablet rosuvastati 2021- No 40mg QD Take 1 Met hodi n (CRESTOR) 07-17 tablet (40 s t 40 MG 00:00: 05:59 mg total) Hospit a tablet 00 :00 by mouth l daily. losartan-hy 2020- No 1{tbl} QD Take 1 M ethodi drochloroth 07-[address] iazide 00:00: 00:00 mouth Hospita (HYZAAR) 00 :00 daily. l 100-12.5 mg per tablet rosuvastati 2020- No 40mg QD Take 1 Met hodi n (CRESTOR) 07-17 tablet (40 s t 40 MG 00:00: 00:00 mg total) Hospit a tablet 00 :00 by mouth l daily. atorvastati 2020- No 40mg QD Take 1 Met hodi n (LIPITOR) 07-17 tablet (40 s t 40 mg 00:00: 00:00 mg total) Hospit a tablet 00 :00 by mouth l daily. losartan-hy 2020- No 1{tbl} QD Take 1 M ethodi drochloroth 01-[address] iazide 00:00: 00:00 mouth Hospita (HYZAAR) 00 :00 daily. l 100-12.5 mg per tablet atorvastati 2020- No 40mg QD Take 1 Met hodi n (LIPITOR) 01-09 tablet (40 s t 40 mg 00:00: 00:00 mg total) Hospit a tablet 00 :00 by mouth l daily. Immunizations Ordered Immunization Filled Immunization Date Status Commen ts Source Name Name JACEY COVID-19 MRNA 2021-03-20 Completed [facility] odist VACCINATION 00:00:00 [facility] PFIZER COVID-19 MRNA 2021-03-20 Completed Meth odist VACCINATION 00:00:00 [facility] PFIZER COVID-19 MRNA 2021-03-20 Completed Meth odist VACCINATION 00:00:00 [facility] PFIZER COVID-19 MRNA 2021-03-20 Completed Meth odist VACCINATION 00:00:00 [facility] PFIZER COVID-19 MRNA 2021-03-20 Completed Meth odist VACCINATION 00:00:00 [facility] PFIZER COVID-19 MRNA 2021-03-20 Completed Meth odist VACCINATION 00:00:00 [facility] PFIZER COVID-19 MRNA 2021-03-20 Completed Meth odist VACCINATION 00:00:00 [facility] PFIZER COVID-19 MRNA 2020-08-30 Completed Meth odist VACCINATION 00:00:00 [facility] PFIZER COVID-19 MRNA 2020-08-30 Completed Meth odist VACCINATION 00:00:00 [facility] PFIZER COVID-19 MRNA 2020-08-30 Completed Meth odist VACCINATION 00:00:00 [facility] PFIZER COVID-19 MRNA 2020-08-30 Completed Meth odist VACCINATION 00:00:00 [facility] PFIZER COVID-19 MRNA 2020-08-30 Completed Meth odist VACCINATION 00:00:00 [facility] PFIZER COVID-19 MRNA 2020-08-30 Completed Meth odist VACCINATION 00:00:00 [facility] PFIZER COVID-19 MRNA 2020-08-30 Completed Meth odist VACCINATION 00:00:00 [facility] PFIZER COVID-19 MRNA 2020-08-30 Completed Meth odist VACCINATION 00:00:00 [facility] PFIZER COVID-19 MRNA 2020-08-09 Completed [facility] VACCINATION 00:00:00 [facility] PFIZER COVID-19 MRNA 2020-08-09 Completed [facility] VACCINATION 00:00:00 [facility] PFIZER COVID-19 MRNA 2020-08-09 Completed [facility] VACCINATION 00:00:00 [facility] PFIZER COVID-19 MRNA 2020-08-09 Completed [facility] od[facility] VACCINATION 00:00:00 [facility] PFIZER COVID-19 MRNA 2020-08-09 Completed [id number] [facility] COVID-19 MRNA 2020-08-09 Completed [facility] PFIZER COVID-19 MRNA 2020-08-09 Completed [facility]:00 [facility] PFIZER COVID-19 MRNA 2020-08-09 Completed [facility]:00 Hospital Zoster Vaccine 2019-03-28 Completed [facility] Recom[facility] 00:00:00 Hospital Zoster Vaccine 2019-03-28 Completed [facility] Recombinant 00:00:00 Hospital Zoster Vaccine 2019-03-28 Completed [facility] Recombinant 00:00:00 Hospital Zoster Vaccine 2019-03-28 Completed [facility] Recombinant 00:00:00 Hospital Zoster Vaccine 2019-03-28 Completed [facility] Recombinant 00:00:00 Hospital Zoster Vaccine 2019-03-28 Completed [facility] Recombinant 00:00:00 Hospital Zoster Vaccine 2019-03-28 Completed [facility] Recombinant 00:00:00 Hospital Zoster Vaccine 2019-03-28 Completed [facility] Recombinant 00:00:00 Hospital FLUAD PF 2019-02-17 Completed [facility] 00:00:00 Hospital FLUAD PF 2019-02-17 Completed [facility] 00:00:00 Hospital FLUAD PF 2019-02-17 Completed [facility] 00:00:00 Hospital FLUAD PF 2019-02-17 Completed [facility] 00:00:00 Hospital FLUAD PF 2019-02-17 Completed [facility] 00:00:00 Hospital FLUAD PF 2019-02-17 Completed [facility] 00:00:00 Hospital FLUAD PF 2019-02-17 Completed [facility] 00:00:00 Hospital FLUAD PF 2019-02-17 Completed [facility] 00:00:00 Hospital Zoster Vaccine 2019-01-23 Completed [facility] Recombinant 00:00:00 Hospital Pneumococcal 2019-01-23 Completed [facility] Polysaccharide 00:00:00 Hospital Zoster Vaccine 2019-01-23 Completed [facility] Recombinant 00:00:00 Hospital Pneumococcal 2019-01-23 Completed [facility] Polysaccharide 00:00:00 Hospital Zoster Vaccine 2019-01-23 Completed [facility] Recombinant 00:00:00 Hospital Pneumococcal 2019-01-23 Completed [facility] Polysaccharide 00:00:00 Hospital Zoster Vaccine 2019-01-23 Completed [facility] Recombinant 00:00:00 Hospital Pneumococcal 2019-01-23 Completed [facility] Polysaccharide 00:00:00 Hospital Zoster Vaccine 2019-01-23 Completed [facility] Recombinant 00:00:00 Hospital Pneumococcal 2019-01-23 Completed [facility] Polysaccharide 00:00:00 Hospital Zoster Vaccine 2019-01-23 Completed [facility] Recombinant 00:00:00 [facility] Pneumococcal 2019-01-23 Completed [facility] Polysaccharide 00:00:00 Hospital Zoster Vaccine 2019-01-23 Completed [facility] Recombinant 00:00:00 [facility] Pneumococcal 2019-01-23 Completed [facility] Polysaccharide 00:00:00 Hospital Zoster Vaccine 2019-01-23 Completed [facility] Recombinant 00:00:00 [facility] Pneumococcal 2019-01-23 Completed [facility] Polysaccharide 00:00:00 [facility] FLUCELVAX QUAD PF 2017-07-[address] 00:00:00 Hospital FLUCELVAX QUAD PF 2017-07-[address] 00:00:00 [facility] FLUCELVAX QUAD PF 2017-07-[address] 00:00:00 Hospital FLUCELVAX QUAD PF 2017-07-[address] 00:00:00 Hospital FLUCELVAX QUAD PF 2017-07-[address] 00:00:00 [facility] FLUCELVAX QUAD PF 2017-07-[address] 00:00:00 [facility] FLUCELVAX QUAD PF 2017-07-[address] 00:00:00 [facility] FLUCELVAX QUAD PF 2017-07-[address] 00:00:00 Hospital Vital Signs Vital Name Observation Time Observation Value Comments Source Systolic blood 2022-11-19 16:09:00 114 mm[Hg] Method [facility] Hospital pressure Diastolic blood 2022-11-19 16:09:00 74 mm[Hg] [facility] pressure Heart rate 2022-11-19 16:09:00 69 /min [facility] Body height 2022-11-19 16:09:00 165.1 cm [facility] Body weight 2022-11-19 16:09:00 65.772 kg [facility] BMI 2022-11-19 16:09:00 24.13 kg/m2 [facility] Oxygen saturation in 2022-11-19 16:09:00 97 /min [facility] Arterial blood by Pulse oximetry Systolic blood 2022-04-30 14:16:00 116 mm[Hg] Method [facility] Hospital pressure Diastolic blood 2022-04-30 14:16:00 70 mm[Hg] [facility] pressure Heart rate 2022-04-30 14:16:00 67 /min [facility] Body height 2022-04-30 14:16:00 165.1 cm [facility] Body weight 2022-04-30 14:16:00 63.504 kg [facility] BMI 2022-04-30 14:16:00 23.30 kg/m2 [facility] Oxygen saturation in 2022-04-30 14:16:00 98 /min [facility] Arterial blood by Pulse oximetry Systolic blood 2021-11-06 17:01:00 115 mm[Hg] [facility] pressure Diastolic blood 2021-11-06 17:01:00 78 mm[Hg] [facility] pressure Heart rate 2021-11-06 17:01:00 74 /min [facility] Body height 2021-11-06 17:01:00 165.1 cm [facility] Body weight 2021-11-06 17:01:00 63.504 kg [facility] BMI 2021-11-06 17:01:00 23.30 kg/m2 [facility] Oxygen saturation in 2021-04-29 15:52:00 95 /min [facility] Arterial blood by Pulse oximetry Diastolic blood 2020-08-02 14:15:00 57 mm[Hg] [facility] pressure Heart rate 2020-08-02 14:15:00 66 /min [facility] Respiratory rate 2020-08-02 14:15:00 25 /min [facility] Oxygen saturation in 2020-08-02 14:15:00 96 /min [facility] Arterial blood by Pulse oximetry Systolic blood 2020-08-02 14:15:00 100 mm[Hg] [facility] pressure Body temperature 2020-08-02 12:52:00 36.83 Darlene Meth [facility] Body height 2020-08-02 12:39:00 165.1 cm [facility] Body weight 2020-08-02 12:39:00 62.596 kg [facility] BMI 2020-08-02 12:39:00 22.96 kg/m2 [facility] Procedures Procedure Date / Time Performing Clinician Source Performed CV STRESS TEST NUCLEAR 2022-11-19 16:11:05 Dalton Negrete [facility] CARDIO NM MYOCARDIAL PERFUSION 2022-11-19 16:11[facility]05 [facility] 12-LEAD 2022-11-19 16:10:40 Negrete, [facility] TTE COMPLETE, WO 2022-11-19 15:58:14 Negrete, [facility] CONTRAST, W DOPPLER ([id number]) THYROID STIMULATING 2022-10-29 13:52:00 Negrete, [facility] HORMONE LIPID PANEL 2022-10-29 13:52:00 Negrete, [facility] HEMOGLOBIN A1C 2022-10-29 13:52:00 Negrete, [facility] ESTIMATED GFR 2022-10-29 13:52:00 Negrete, [facility] COMPREHENSIVE METABOLIC 2022-10-29 13:52:00 Negrete, [facility] PANEL CBC HEMOGRAM 2022-10-29 13:52:00 Negrete, [facility] ECG 12-LEAD 2022-04-30 14:22:58 Negrete, [facility] HEMOGLOBIN A1C 2022-04-23 15:20:00 Negrete, [facility] COMPREHENSIVE METABOLIC 2022-04-23 15:20:00 Negrete, [facility] PANEL CBC HEMOGRAM 2022-04-23 15:20:00 Negrete, [facility] THYROID STIMULATING 2022-04-23 15:20:00 Negrete, [facility] HORMONE LIPID PANEL 2022-04-23 15:20:00 Negrete, [facility] ESTIMATED GFR 2022-04-23 15:20:00 Negrete, [facility] TTE COMPLETE, WO 2021-11-06 15:52:09 Negrete, [facility] CONTRAST, W DOPPLER ([id number]) CV STRESS TEST NUCLEAR 2021-11-06 13:47:09 Chandrakant, [facility] CARDIO NM MYOCARDIAL PERFUSION 2021-11-06 13:47:09 Negrete, [facility] STRESS REST 1 DAY ECG 12-LEAD 2021-11-06 12:27:56 Negrete, [facility] ECG 12-LEAD 2021-04-29 15:59:18 Negrete, [facility] HEMOGLOBIN A1C 2021-04-24 15:29:00 Negrete, [facility] THYROID STIMULATING 2021-04-24 15:29:00 Negrete, [facility] HORMONE LIPID PANEL 2021-04-24 15:29:00 Negrete, [facility] CBC HEMOGRAM 2021-04-24 15:29:00 Negrete, [facility] COMPREHENSIVE METABOLIC 2021-04-24 15:29:00 Negrete, [facility] PANEL ESTIMATED GFR 2021-04-24 15:29:00 Chandrakant, [facility] CV LEFT HEART CATH LV 2020-08-02 14:03:52 Chnadrakant, [facility] GRAM WITH CORS COMPREHENSIVE METABOLIC 2020-07-31 16:00:00 Chandrakant, [facility] PANEL CBC HEMOGRAM 2020-07-31 16:00:00 Chandrakant, [facility] TYPE AND SCREEN 2020-07-31 16:00:00 Negrete, [facility] PROTHROMBIN TIME WITH INR 2020-07-31 16:00:00 Chandrakant, [facility] ESTIMATED GFR 2020-07-31 16:00:00 Chandrakant, [facility] COVID-19 QUALITATIVE 2020-07-31 15:47:00 Chandrakant, [facility] RT-PCR ECG 12-LEAD 2020-07-17 20:54:00 Chandrakant, [facility] CV STRESS TEST NUCLEAR 2020-07-17 20:17:02 Chandrakant, [facility] CARDIO NM MYOCARDIAL PERFUSION 2020-07-17 20:17:02 Chandrakant, [facility] STRESS REST 1 DAY US CAROTID DUPLEX 2020-07-17 20:10:39 Chandrakant, [facility] BILATERAL CBC HEMOGRAM 2020-07-16 15:45:00 Negrete, [facility] COMPREHENSIVE METABOLIC 2020-07-16 15:45:00 Chandrakant, [facility] PANEL THYROID STIMULATING 2020-07[facility]16 [facility] 2020-07-16 15:45:00 Chandrakant [facility] ESTIMATED GFR 2020-07-16 15:45:00 [facility] CV CARDIAC EVENT MONITOR 2020-06-28 00:00:[address] [facility] [address] CARDIAC CALCIUM SCORE 2020-03-27 15:28:25 [facility] Plan of Care Planned Activity Planned Date Details Comments Source Future Scheduled 2023-02-19 Hepatitis C screening [facility] Test 14:42:59 (procedure) [code = 581260605] Future Scheduled 2023-02-19 65+ [facility] 14:42:59 VACCINE (2 - PCV) [code = 65+ PNEUMOCOCCAL VACCINE (2 - PCV)] Future Scheduled 2023-02-19 COVID-19 VACCINE (4 - [facility] Test 14:42:59 Pfizer series) [code = COVID-19 VACCINE (4 - Pfizer series)] Future Scheduled 2023-02-19 INFLUENZA VACCINE (#1) M [facility] Test 14:42:59 [code = INFLUENZA VACCINE (#1)] Future Scheduled 2022-06-25 Hepatitis C screening [facility] Test 14:31:32 (procedure) [code = 210904931] Future Scheduled 2022-06-25 65+ [facility] 14:31:32 VACCINE (2 - PCV) [code = 65+ PNEUMOCOCCAL VACCINE (2 - PCV)] Future Scheduled 2022-06-25 COVID-19 VACCINE (4 - [facility] Test 14:31:32 Booster for Pfizer series) [code = COVID-19 VACCINE (4 - Booster for Pfizer series)] Future Scheduled 2022-06-25 INFLUENZA VACCINE Method [facility] Test 14:31:32 [code = INFLUENZA VACCINE] Future Scheduled 2022-06-25 Hepatitis C screening [facility] Test 14:31:32 (procedure) [code = 317538800] Future Scheduled 2022-06-25 65+ [facility] Test 14:31:32 VACCINE (2 - PCV) [code = 65+ PNEUMOCOCCAL VACCINE (2 - PCV)] Future Scheduled 2022-06-25 COVID-19 [facility]ACCINE (4 - [facility] Test 14:31:32 Booster for Pfizer series) [code = COVID-19 VACCINE (4 - Booster for Pfizer series)] Future Scheduled 2022-06-25 [facility]FLUENZA VACCINE [facility] Test 14:31:32 [code = INFLUENZA VACCINE] Future Scheduled 2022-06-25 [facility] Test 14:31:32 (procedure) [code = 967134973] Future Scheduled 2022-06-25 65+ [facility]OCCAL [facility] Test 14:31:32 VACCINE (2 - PCV) [code = 65+ PNEUMOCOCCAL VACCINE (2 - PCV)] Future Scheduled 2022-06-25 COVID-19 VACCINE (4 - [facility] Test 14:31:32 Booster for Pfizer series) [code = COVID-19 VACCINE (4 - Booster for Pfizer series)] Future Scheduled 2022-06-25 INFLUENZA VACCINE [facility] Test 14:31:32 [code = INFLUENZA VACCINE] Future Scheduled 2022-06-25 [facility] screening [facility] Test 14:31:32 (procedure) [code = 546657468] Future Scheduled 2022-06-25 65+ [facility]OCOCCAL [facility] Test 14:31:32 VACCINE (2 - PCV) [code = 65+ PNEUMOCOCCAL VACCINE (2 - PCV)] Future Scheduled 2022-06-25 COVID-19 VACCINE (4 - [facility] Test 14:31:32 Booster for Pfizer series) [code = COVID-19 VACCINE (4 - Booster for Pfizer series)] Future Scheduled 2022-06-25 INFLUENZA VACCINE [facility] Test 14:31:32 [code = INFLUENZA VACCINE] Future Scheduled 2022-06-24 [facility] Test 18:41:16 (procedure) [code = 479712871] Future Scheduled 2022-06-24 65+ [facility]OCOCCAL [facility] Test 18:41:16 VACCINE (2 - PCV) [code = 65+ PNEUMOCOCCAL VACCINE (2 - PCV)] Future Scheduled 2022-06-24 COVID-19 VACCINE (4 - [facility] Test 18:41:16 Booster for Pfizer series) [code = COVID-19 VACCINE (4 - Booster for Pfizer series)] Future Scheduled 2022-06-24 INFLUENZA VACCINE [facility] Test 18:41:16 [code = INFLUENZA VACCINE] Future Scheduled 2022-03-11 HEPATITIS B VACCINES [facility] Test 14:09:36 (1 of 3 - 3-dose series) [code = HEPATITIS B VACCINES (1 of 3 - 3-dose series)] Future Scheduled 2022-03-11 Hepatitis C screening [facility] Test 14:09:36 (procedure) [code = 490175135] Future Scheduled 2022-03-11 65+ [facility]OCOCCAL [facility] Test 14:09:36 VACCINE (2 - PCV) [code = 65+ PNEUMOCOCCAL VACCINE (2 - PCV)] Future Scheduled 2022-03-11 COVID-19 VACCINE (4 - [facility] Test 14:09:36 Booster for Pfizer series) [code = COVID-19 VACCINE (4 - Booster for Pfizer series)] Future Scheduled 2022-03-11 INFLUENZA VACCINE Method [facility] Test 14:09:36 [code = INFLUENZA VACCINE] Future Scheduled Hepatitis C screening [facility] Test (procedure) [code = 146105680] Future Scheduled INFLUENZA VACCINE Method [facility] Test [code = INFLUENZA VACCINE] Encounters Start End Encounter Admission Attending Care Care Encounter Source Date/Time Date/Time Type Type Clinicians Facility Department ID 2022-11-19 2022-11-19 Office Chandrakant 1.2.840.1 [id number] Methodi 11:00:00 13:27:22 Visit Dalton Sanchez 10435.1.[address] 3.430.2.7 Hospit a .3.219186 l .8 2022-11-19 2022-11-19 Travel 1.2.840.1 1.2.835.191 7746 [id number] [facility]i 00:00:00 00:00:[address] 3.430.2.7 0.2.7.3.698 Ho spita .3.676837 084.8 l .8 2022-11-19 2022-11-19 [facility] [id number] [address] [place] [address] 00:00:00 00:00:00 DALTON 93Juan [address] [facility] 2022-11-19 2022-11-19 [facility] [id number] 00:00:00 00:00:00 DALTON [address] 2022-11-19 2022-11-19 Outpatient CHANDRAKANT [facility] [id number] 00:00:00 00:00:00 DALTON [address] 2022-10-29 2022-10-29 Lab Chandrakant, 1.2.840.1 [id number] Methodi 08:45:00 08:50:00 Dalton Daniel 22078.1.[address] 3.430.2.7 Hospit a .3.569108 l .8 2022-10-29 2022-10-29 Travel 1.2.840.1 1.2.729.984 9723 [id number] Methodi 00:00:00 00:00:[address] 3.430.2.7 0.2.7.3.698 Ho spita .3.133349 084.8 l .8 2022-10-29 2022-10-29 Outpatient CHANDRAKANT, [facility] [id number] 00:00:00 00:00:00 DALTON [address] 2022-10-23 2022-10-23 [facility] 1.2.840.1 [id number] Methodi 00:00:00 00:00:00 Only Yaa minaya 19723.1.[address] Irena 3.430.2.7 Hospit a .3.903916 l .8 2022-06-11 2022-06-11 Refill Chandrakant, 1.2.840.1 [id number] 0614 Methodi 00:00:00 00:00:00 Dalton Daniel 21963.1.[address] 3.430.2.7 Hospit a .3.521890 l .8 2022-06-11 2022-06-11 Refsusana Negrete, 1.2.840.1 [id number] 9091 Methodi 00:00:00 00:00:00 Dalton Daniel 41959.1.[address] 3.430.2.7 Hospit a .3.091414 l .8 2022-06-10 2022-06-10 Refill Negrete, 1.2.840.1 [id number] 6605 Methodi 00:00:00 00:00:[address] 3.430.2.7 Hospit a .3.263161 l .8 2022-06-10 2022-06-10 Refill Negrete, 1.2.840.1 [id number] 9470 Methodi 00:00:00 00:00:00 Dalton Daniel 85119.1.[address] 3.430.2.7 Hospit a .3.427181 l .8 2022-06-05 2022-06-05 Refill Negrete, 1.2.840.1 [id number] 3722 Methodi 00:00:00 00:00:[address] Dalton[address].1.[address] 3.430.2.7 Hospit a .3.647398 l .8 2022-06-05 2022-06-05 Refill Negrete, 1.2.840.1 [id number] 5706 Methodi 00:00:00 00:00:[address] 3.430.2.7 Hospit a .3.593838 l .8 2022-04-30 2022-04-30 Office Negrete, 1.2.840.1 [id number] 4095 Methodi 08:00:00 09:26:26 Visit Daltonadam Sanchez 58106.1.[address] 3.430.2.7 Hospit a .3.141471 l .8 2022-04-30 2022-04-30 Office Negrete, 1.2.840.1 [id number] 0517 Methodi 08:00:00 09:26:26 Visit Daltonadam Sanchez 99013.1.[address] 3.430.2.7 Hospit a .3.783925 l .8 2022-04-30 2022-04-30 Travel 1.2.840.1 1.2.979.004 9735 [id number] Methodi 00:00:00 00:00:[address] 3.430.2.7 0.2.7.3.698 Ho spita .3.322247 084.8 l .8 2022-04-30 2022-04-30 Travel 1.2.840.1 1.2.830.456 5488 600643 Methodi 00:00:00 00:00:[address] 3.430.2.7 0.2.7.3.698 Ho spita .3.492555 084.8 l .8 2022-04-23 2022-04-23 Lab Negrete, 1.2.840.1 [id number] 2454 Methodi 10:15:00 10:20:[address]1.[address] 3.430.2.7 Hospit a .3.297535 l .8 2022-04-23 2022-04-23 Lab Negrete, 1.2.840.1 [id number] 4241 Methodi 10:15:00 10:20:[address] Daltonadam [address]1.[address] 3.430.2.7 Hospit a .3.424185 l .8 2022-04-23 2022-04-23 Travel 1.2.840.1 1.2.142.441 6235 [id number] Methodi 00:00:00 00:00:[address] 3.430.2.7 0.2.7.3.698 Ho spita .3.666723 084.8 l .8 2022-04-23 2022-04-23 Travel 1.2.840.1 1.2.615.987 4800 [id number] Methodi 00:00:00 00:00:[address] 3.430.2.7 0.2.7.3.698 Ho spita .3.895872 084.8 l .8 2022-04-20 2022-04-20 Orders Sameera-Kathy 1.2.840.1 [id number] Methodi 00:00:00 00:00:00 Only an, Yaa 84245.1.[address] Irena 3.430.2.7 Hospit a .3.651509 l .8 2022-04-20 2022-04-20 Orders Sameera-Kathy 1.2.840.1 [id number] Methodi 00:00:00 00:00:00 Only an, Yaa 99916.1.[address] Irena 3.430.2.7 Hospit a .3.232132 l .8 2022-03-12 2022-03-12 Outpatient MIGUEL A Yemi Fernandez [facility] [place] [id number] [facility] 08:00:00 08:00:[address] [place] [address] 2021-11-06 2021-11-06 Office Chandrakant, 1.2.840.1 [id number] Methodi 11:30:00 12:51:23 Visit Daltonadam Sanchez 12480.1.[address] 3.430.2.7 Hospit a .3.397645 l .8 2021-11-06 2021-11-06 Outpatient CHANDRAKANT [facility] [id number] 00:00:00 00:00:00 DALTON 501 Method i 2021-11-06 2021-11-06 Outpatient CHANDRAKANT [facility] [id number] [address] [place] [address] 00:00:00 00:00:00 DALTON 503 Method i 2021-11-06 2021-11-06 Travel 1.2.840.1 1.2.264.743 6438 [id number] Methodi 00:00:00 00:00:[address] 3.430.2.7 0.2.7.3.698 Ho spita .3.948723 084.8 l .8 2021-10-30 2021-10-30 [facility] [id number] 00:00:00 00:00:00 DALTON 664 Method i 2021-10-30 2021-10-30 Travel 1.2.840.1 1.2.178.522 6235 [id number] Methodi 00:00:00 00:00:[address] 3.430.2.7 0.2.7.3.698 Ho spita .3.212038 084.8 l .8 2021-10-29 2021-10-29 Orders Sameera-Kathy 1.2.840.1 [id number] Methodi 00:00:00 00:00:00 Only an, Yaa 97856.1.[address] Irena 3.430.2.7 Hospit a .3.603950 l .8 2021-04-29 2021-04-29 Office Chandrakant 1.2.840.1 [id number] 3532 Methodi 09:30:00 11:02:11 Visit Daltonadam Sanchez 21010.1.[address] 3.430.2.7 Hospit a .3.406677 l .8 2021-04-29 2021-04-29 Travel 1.2.840.1 1.2.976.921 6496 [id number] Methodi 00:00:00 00:00:[address] 3.430.2.7 0.2.7.3.698 Ho spita .3.718118 084.8 l .8 2021-04-24 2021-04-24 [facility] [id number] 00:00:00 00:00:00 DALTON [address] 2021-04-24 2021-04-24 Travel 1.2.840.1 1.2.846.995 0147 [id number] Methodi 00:00:00 00:00:[address] 3.430.2.7 0.2.7.3.698 Ho spita .3.041164 084.8 l .8 2021-04-23 2021-04-23 Orders Sameera-Kathy 1.2.840.1 [id number] Methodi 00:00:00 00:00:00 Only an, Yaa 80161.1.[address] Irena 3.430.2.7 Hospit a .3.770136 l .8 2021-03-20 2021-03-20 Clinical 1.2.840.1 [id number] 31508 Methodi 15:50:00 15:50:[address] 3.430.2.7 Hospit a .3.879401 l .8 2021-02-18 2021-02-18 Outpatient MIGUEL A Yemi Fernandez [facility] [place]0 [id number] [facility] 08:00:00 08:00:00 10 [facility] 2020-08-30 2020-08-30 Clinical Florentin, 1.2.840.1 [id number] Methodi 10:37:01 10:40:02 Support Alli 66048.1.[address] P. 3.430.2.7 Hospit a .3.367260 l .8 2020-08-09 2020-08-09 Clinical 1.2.840.1 [id number] 16506 Methodi 10:11:50 10:16:[address] 3.430.2.7 Hospit a .3.593874 l .8 2020-08-09 2020-08-09 Travel 1.2.840.1 1.2.466.388 1272 [id number] Methodi 00:00:00 00:00:[address] 3.430.2.7 0.2.7.3.698 Ho spita .3.186354 084.8 l .8 2020-08-02 2020-08-02 Hospital Chandrakant, 1.2.840.1 [id number] Methodi 06:15:00 11:50:00 Encounter Dalton Sanchez 19949.1.[address] 3.430.2.7 Hospit a .3.834471 l .8 2020-08-02 2020-08-02 Surgery Chandrakant, 1.2.840.1 [id number] 5755 Methodi 07:30:00 08:30:00 Dalton Daniel 80378.1.[address] 3.430.2.7 Hospit a .3.834479 l .8 2020-08-02 2020-08-02 Travel 1.2.840.1 1.2.298.608 0123 [id number] Methodi 00:00:00 00:00:[address] 3.430.2.7 0.2.7.3.698 Ho spita .3.796715 084.8 l .8 2020-07-31 2020-07-31 Outpatient CHANDRAKANT, [facility] [id number] 00:00:00 00:00:00 DALTON [address] 2020-07-31 2020-07-31 Travel 1.2.840.1 1.2.954.645 6980 [id number] Methodi 00:00:00 00:00:[address] 3.430.2.7 0.2.7.3.698 Ho spita .3.739354 084.8 l .8 2020-07-19 2020-07-19 Orders Chandrakant, 1.2.840.1 [id number] 5438 Methodi 00:00:00 00:00:00 Only Dalton Sanchez 27237.1.[address] 3.430.2.7 Hospit a .3.743745 l .8 2020-07-18 2020-07-18 Telephone Sandoval 1.2.840.1 [id number] 2100 023078 Methodi 00:00:00 00:00:[address] 3.430.2.7 Hospit a .3.148723 l .8 2020-07-18 2020-07-18 Orders Sameera-Kathy 1.2.840.1 [id number] Methodi 00:00:00 00:00:00 Only Yaa minaya 14643.1.[address] Irena 3.430.2.7 Hospit a .3.250242 l .8 2020-07-18 2020-07-18 Travel 1.2.840.1 1.2.671.201 5553 216581 Methodi 00:00:00 00:00:[address] 3.430.2.7 0.2.7.3.698 Ho spita .3.274878 084.8 l .8 2020-07-18 2020-07-18 Prep for Chandrakant, 1.2.840.1 [id number] 17100 29378 Methodi 00:00:00 00:00:00 Surgery Daltonadam Sanchez 41023.1.[address] 3.430.2.7 Hospit a .3.324731 l .8 2020-07-17 2020-07-17 Office Chandrakant, 1.2.840.1 [id number] 8613 Methodi 08:29:20 15:39:26 Visit Daltonadam Sanchez 39578.1.[address] 3.430.2.7 Hospit a .3.399089 l .8 2020-07-17 2020-07-17 Outpatient NEGRETE, [facility] [id number] [place] 00:00:00 00:00:00 DALTON 233 Method i 2020-07-17 2020-07-17 Outpatient NEGRETE, [facility] [id number] [place] 00:00:00 00:00:00 DALTON 189 Method i 2020-07-17 2020-07-17 Outpatient NEGRETE, [facility] [id number] [place] 00:00:00 00:00:00 DALTON 283 Method i 2020-07-16 2020-07-16 Outpatient NEGRETE, [facility] [id number] [place] 00:00:00 00:00:00 DALTON 778 Method i 2020-07-16 2020-07-16 Travel 1.2.840.1 1.2.893.928 8570 [id number] Methodi 00:00:00 00:00:[address] 3.430.2.7 0.2.7.3.698 Ho spita .3.752470 084.8 l .8 2020-07-10 2020-07-10 Orders [facility] 1.2.840.1 [id number] 21 [id number] Methodi 00:00:00 00:00:00 Only an, Yaa [address]676.1.[address] Irena 3.430.2.7 Hospit a .3.324391 l .8 2020-07-02 2020-07-02 Travel 1.2.840.1 1.2.927.936 1034 348884 Methodi 00:00:00 00:00:[address] 3.430.2.7 0.2.7.3.698 Ho spita .3.845957 084.8 l .8 2020-06-25 2020-06-25 Travel 1.2.840.1 1.2.821.943 2301 653432 Methodi 00:00:00 00:00:[address] 3.430.2.7 0.2.7.3.698 Ho spita .3.221008 084.8 l .8 2020-06-17 2020-06-17 [place] Yuriy, 1.2.840.1 [id number] Methodi 00:00:00 00:00:[address] 3.430.2.7 Hospit a .3.364978 l .8 2020-04-10 2020-04-10 [facility] 1.2.840.1 [id number] Methodi 00:00:00 00:00:00 Only an, Yaa 37347.1.[address] Irena 3.430.2.7 Hospit a .3.244045 l .8 2020-03-27 2020-03-27 [facility] Negrete, 1.2.840.1 [id number] Methodi 09:47:30 23:59:00 Encounter Dalton Sanchez [address]46.1.[address] 3.430.2.7 Hospit a .3.494359 l .8 2020-03-27 2020-03-27 Travel 1.2.840.1 1.2.864.102 [id number] Methodi 00:00:00 00:00:[address] 3.430.2.7 0.2.7.3.698 Ho spita .3.508331 084.8 l .8 2020-03-19 2020-03-19 Travel 1.2.840.1 1.2.130.336 [id number] Methodi 00:00:00 00:00:[address] 3.430.2.7 0.2.7.3.698 Ho spita .3.112402 084.8 l .8 2020-01-11 2020-01-11 Outpatient MIGUEL A BoucherydYemi [facility] [place]0 [id number] [facility] 12:00:00 12:00:00 39 [facility] 2020-01-10 2020-01-10 [facility] [id number] [place] 00:00:00 00:00:00 [place] [address] 2020-01-10 2020-01-10 [facility] [id number] [place] 00:00:00 00:00:00 [place] [address] 2020-01-10 2020-01-10 [facility] [id number] [place] 00:00:00 00:00:00 [place] [address] 2020-01-04 2020-01-04 [facility] [id number] [place] 00:00:00 00:00:00 [place] [address] Results Test Description Test Time Test Comments Results Result Comments Source ECG 12 lead 2022-11-20 03:09:11 Test Item Value Reference Range Interpretation Comme nts Ventricular rate (test code = 253) 68 Atrial rate (test code = 255) 68 HI interval (test code = 266) 180 QRSD interval (test code = 260) 70 QT interval (test code = 264) 404 QTC interval (test code = 265) 429 P axis 1 (test code = 267) 14 QRS axis 1 (test code = 268) 66 T wave axis (test code = 270) 73 EKG impression (test code = 273) Normal sinus rhythm-Normal ECG-In automated comparison with ECG of 30-APR-2022 08:22,-No significant change was found- [address]2022-11-10 14:33:31 Test Item Value Reference Range Interpretation Comments Ventricular rate (test code = 253) Atrial rate (test code = 255) HI interval (test code = 266) QRSD interval (test code = 260) QT interval (test code = 264) QTC interval (test code = 265) P axis 1 (test code = 267) QRS axis 1 (test code = 268) T wave axis (test code = 270) EKG impression (test Normal sinus code = 273) rhythm-Cannot rule out Anterior infarct , age undetermined-Abnormal ECG-In automated comparison with ECG of 06-NOV-2021 07:27,-No significant change was found- [address]2022-11-10 14:33:31 Test Item Value Reference Range Interpretation Comments Ventricular rate (test code = 253) Atrial rate (test code = 255) HI interval (test code = 266) QRSD interval (test code = 260) QT interval (test code = 264) QTC interval (test code = 265) P axis 1 (test code = 267) QRS axis 1 (test code = 268) T wave axis (test code = 270) EKG impression (test Normal sinus code = 273) rhythm-Cannot rule out Anterior infarct , age undetermined-Abnormal ECG-In automated comparison with ECG of 06-NOV-2021 07:27,-No significant change was found- [address]2022-11-10 14:33:31 Test Item Value Reference Range Interpretation Comments Ventricular rate (test code = 253) Atrial rate (test code = 255) HI interval (test code = 266) QRSD interval (test code = 260) QT interval (test code = 264) QTC interval (test code = 265) P axis 1 (test code = 267) QRS axis 1 (test code = 268) T wave axis (test code = 270) EKG impression (test Normal sinus code = 273) rhythm-Cannot rule out Anterior infarct , age undetermined-Abnormal ECG-In automated comparison with ECG of 06-NOV-2021 07:27,-No significant change was found- [address]2022-11-10 14:33:31 Test Item Value Reference Range Interpretation Comments Ventricular rate (test code = 253) Atrial rate (test code = 255) HI interval (test code = 266) QRSD interval (test code = 260) QT interval (test code = 264) QTC interval (test code = 265) P axis 1 (test code = 267) QRS axis 1 (test code = 268) T wave axis (test code = 270) EKG impression (test Normal sinus code = 273) rhythm-Cannot rule out Anterior infarct , age undetermined-Abnormal ECG-In automated comparison with ECG of 06-NOV-2021 07:27,-No significant change was found- [address]2022-11-10 14:33:31 Test Item Value Reference Range Interpretation Comments Ventricular rate (test code = 253) Atrial rate (test code = 255) HI interval (test code = 266) QRSD interval (test code = 260) QT interval (test code = 264) QTC interval (test code = 265) P axis 1 (test code = 267) QRS axis 1 (test code = 268) T wave axis (test code = 270) EKG impression (test Normal sinus code = 273) rhythm-Cannot rule out Anterior infarct , age undetermined-Abnormal ECG-In automated comparison with ECG of 06-NOV-2021 07:27,-No significant change was found- [address]2022-05-20 02:02:49 Test Item Value Reference Range Interpretation Comments Ventricular rate (test code = 253) Atrial rate (test code = 255) HI interval (test code = 266) QRSD interval (test code = 260) QT interval (test code = 264) QTC interval (test code = 265) P axis 1 (test code = 267) QRS axis 1 (test code = 268) T wave axis (test code = 270) EKG impression (test Normal sinus code = 273) rhythm-Normal ECG-In automated comparison with ECG of 29-APR-2021 09:59,-No significant change was found- [facility] lab [id number] 14:08:20 Test Item Value Reference Range Interpretation Comments Cath EF Estimated 60 % (test code = 9634014160) IMP (test code = 1. Non-obstructive CAD. 2. IMP) Normal left ventricular size and function with an EF~55% to 60%. PLAN:Continue aggressive medical management along with further dietary and riskfactor modification. Procedure Data:Fluoro Time: 1.1 minRadiation Dose: 45 mGyContrast Amount: 50 mL of Visipaque Procedure Times: Case Tracking Events Event Time In In Room 0729 Case Start 0754 Case Finish 0803 Out of Room Patient moved to another OR room Sedation Start 0750 Sedation End 08 Cardiac Rehab: Patient will not be referred for Phase II Cardiac Rehab at this time. BRITTON (test code = Cardiac Catheterization BRITTON) Report ADMISSION DATE: DATE OF SERVICE: 08/02/2020 PATIENT NAME:DATE OF :MEDICAL RECORD NUMBER: PICTURE HANGER: PATIENT'S PRIMARY CARE PHYSICIAN: Luis Fernando Rodriguez9/15/[id number] Dalton Negrete MD@ Pre-Procedure Indication : Abnormal MPI Condition: stable Procedure Summary 1. Moderate Sedation Administration2. Left Heart Catheterization3. [place] Coronary Angiography Moderate Sedation Administration: I attest that moderate sedation was administered by a moderate sedation trained nurse under my direct supervision.The patient received a total of 1 mg of IV Versed and 50 mg of IV Fentanyl. Please see full medication administration record for further information.Total moderate sedation time was 45 minutes. Procedure Description Left Heart Catheterization: The left wrist was prepared and draped in the usual sterile fashion and local anesthesia given. A 4-Welsh micropuncture set was used to gain access to theleft radial artery. This was then exchanged for a 6-Welsh short sheath. Selective cine coronary arteriography was then performed in the various left andright anterior oblique projections using manual injection of Visipaque contrast along with a JL3.5 and a JR4 diagnostic catheters. Subsequently, a 6-Frenchpigtail catheter was advanced into the left ventricle and a left ventriculogram was performed in right anterior oblique projection. Pressures were thenrecorded during pullback of the catheter from the left ventricle into the ascending aorta. Following this, the catheters were removed and hemostasis wasobtained by TR band. [place] Coronary Angiography: Left Main Coronary Artery : The Left Main Coronary Artery gives rise to the LAD, LCX and ramus is angiographically free of disease. Left Anterior Descending Artery : The left anterior descending artery is a large caliber vessel, which gives off a moderately sized diagonal branchproximally, 2 moderately sized septal perforators proximally, a moderately sized diagonal branch in its mid portion extends to the apex. The left anterior descending artery and its branches contain irregularities. Ramus Intermedius: The ramus intermedius is a large caliber vessel which extends to the lateral wall. The ramus intermedius is angiographically free of disease. Left Circumflex Artery : Left circumflex is a large caliber vessel, which gives off a small sized marginal branch in its midportion and a moderate marginal branchdistally and ends as a small AV continuation branch. The left circumflex and its branches are angiographically free of disease. Right Coronary Artery : The right coronary artery is a large caliber dominant vessel, which gives off a small atrial branch proximally, 2 rightventricular branches in its midportion and bifurcates distally into a moderately sized posterior descending artery branch and a moderately sized posterior ventricular branch. The right coronary artery and its branches are angiographically free of disease. Left Ventriculogram: Normal left ventricular size and function with an EF~55% to 60%. LVEDP=20 [facility] [Presence] in Respiratory specimen by TIANNA with probe [id number] 17:37:36 Test Item Value Reference Range Interpretation Comments SARS-CoV-2 (COVID-19) RNA Not detected Not-Detected [Presence] in Respiratory specimen by TIANNA with probe detection (test code = 34207-9) [facility] 12 [id number] 03:46:32 Test Item Value Reference Range Interpretation Comments Ventricular rate (test code = 253) Atrial rate (test code = 255) HI interval (test code = 266) QRSD interval (test code = 260) QT interval (test code = 264) QTC interval (test code = 265) P axis 1 (test code = 267) QRS axis 1 (test code = 268) T wave axis (test code = 270) EKG impression (test Normal sinus code = 273) rhythm-Normal ECG-In automated comparison with ECG of 24-APR-2019 15:02,-No significant change was found- [facility] [id number] 15:30:11EXAMINATION: CT CARDIAC CALCIUM SCORE CLINICAL HISTORY: I10 Essential (primary) hypertension, E78.5 Hyperlipidemia unspecified, cardiac evaluation COMPARISON: None. FINDINGS: [place]at[place] total coronary artery calcium score: 421 Age Corrected Percentile: 70Left main (LM): 75Left anterior descending (LAD):298Left circumflex (LCX): 15Right coronary artery (RCA): 33Posterior descending artery (PDA): 0 Nonco ronary findings: Visualized portions of the lungs, pleura, and pericardium are unremarkable. [place] calcium score (total) extent of atherosclerosis 1-whsuuq9-07-minimal extensive lbeeeymjmnxpsno32-010-ledm extent of oyvctycqmfoqiax474-677-rrugocla extent of atherosclerosisGreater than 400-severe extent of atherosclerosis IMPRESSION:Coronary artery calcium score as above. [id number] Interface, Radiology Results Incoming - 03/27/2020 10:33 AM CDTFormatting of this note might be different fromthe original.EXAMINATION: CT CARDIAC CALCIUM SCORE CLINICAL HISTORY: I10 Essential (primary) hypertension, E78.5 Hyperlipidemia unspecified, cardiac evaluation COMPARISON: None.FINDINGS:Agatston total coronary artery calcium score: 421 Age Corrected Percentile: 70Left main (LM): 75Left anterior descending (LAD): 298Left circumflex (LCX): 15Right coronary artery (RCA): 33Posterior descending artery (PDA): 0Noncoronary findings: Visualized portions of the lungs, pleura, and pericardium are unremarkable.Agatston calcium score (total) extent of ydcfdrbrxqcsfnr4-vesvav3-08-minimal extensive piknrvcwhqchqmw72-459-ijob extent of -358-oqqnocjp extent of atherosclerosisGreater than 400-se blake extent of atherosclerosisIMPRESSION:Coronary artery calcium score as above.[id number]
--- NOTE | 2023-02-21 21:10 | RAD REPORT ---
EXAM DESCRIPTION: CTAbdomen Pelvis Wo Contrast - 02/21/2023 8:50 pm CLINICAL HISTORY: ABD PAIN COMPARISON: Abdomen Pelvis W Contrast dated 08/06/2022; Stone Protocol dated 10/14/2017; Abdomen P familia W Contrast dated 04/16/2017; Abdomen Pelvis W Contrast dated 07/31/2016 TECHNIQUE: CT of the abdomen and pelvis was performed. All CT scans are performed using dose optimization technique as appropriate and may include automated exposure control or mA/KV adjustment according to patient size. FINDINGS: Lower chest: No acute abnormality. Liver: No acute abnormality or suspicious lesions. Biliary: No biliary ductal dilatation. Cholecystectomy. Stomach: No significant focal abnormality. Duodenum: No significant focal abnormality. Pancreas: No significant abnormality. Spleen: No significant abnormality. Adrenal: No suspicious lesions. Kidney/ureter: No hydronephrosis. No renal calculi. Right upper pole renal cyst . Too small to charac terize and/or benign appearing renal lesions are noted. Retroperitoneum: No retroperitoneal adenopathy. Vascular: No aneurysm. Atherosclerosis . Bowel: Diffuse fluid filled small bowel without dilatation. Colorectal anastomosis. Appendix not conf idently identified but no secondary signs of acute appendicitis. Peritoneum: No ascites or free air. Small fat containing umbilical hernia . Bladder: Grossly unremarkable. Reproductive: No adnexal masses. Hysterectomy. Bones: No acute fracture. Other: n/a IMPRESSION: Diffuse fluid filled small bowel that may reflect a gastroenteritis. No bowel obstructio n.
--- NOTE | 2023-02-21 21:30 | RAD REPORT ---
EXAM DESCRIPTION: RAD - Chest Single View - 02/21/2023 9:12 pm CLINICAL HISTORY: COUGH COMPARISON: Chest Pa And Lat (2 Views) dated 07/04/2022; Chest Pa And Lat (2 Views) dated 05/28/2020; Chest Pa And Lat (2 Views) dated 07/26/2018; CHEST PA AND LAT 2 VIEW dated 02/04/2015 FINDINGS: Lines: None. Lungs: No evidence of edema or pneumonia. Pleural: No significant pleural effusions or pneumothorax. Cardiac: The heart size is within normal limits. Mediastinum: Within normal limits. Bones: No acute fractures. Other: None IMPRESSION: No acute cardiopulmonary disease.
[2023-02-21 21:32] LABS: Absolute Lymphocytes (CBC) 0.2 K/uL (0.7-4.9); Lymphocytes % 2.5 % (15.3-44.8); MCV 89.2 fL (80-100); MPV 8.3 fL (7.6-11.3); Platelets 327 thou/uL (152-406); RBC Red Blood Cell Count 4.71 M/uL (3.86-4.86)
[2023-02-21 21:37] LABS: Protime INR 0.98
[2023-02-21] MEDS ORDERED: ONDANSETRON 4 MG/2 ML VIAL ONE (21:44)
[2023-02-21] MEDS ORDERED: NA CHLORIDE 0.9% 1,000 ML ONE (21:44)
[2023-02-21 22:01] LABS: Albumin 3.9 g/dL (3.4-5.0); Bilirubin Direct 0.2 mg/dL (0-0.2); Bilirubin Indirect, Calculated 0.5 mg/dL (0.2-0.8); Bilirubin Total 0.7 mg/dL (0.2-1.0); Potassium 3.4 mEq/L (3.5-5.1); Protein, Total 7.8 g/dL (6.4-8.2); Troponin High Sensitivity 5.2 pg/mL (<58.9)
[2023-02-21 22:03] LABS: SARS-CoV-2 Antigen Rapid Res Negative (Negative)
--- NOTE | 2023-02-21 23:22 | EDPHYS ---
Physician Documentation [facility] Name: Sarah Rodriguez Age: 77 yrs Sex: Female : 1945 Arrival Date: 02/21/2023 Time: 20:02 Bed 6 Private MD: Jai Hall T ED Physician Oscar Dubon HPI: 02/21 23:14 This 77 yrs old Female presents to ER via Ambulatory with complaints of sharon Vomiting/Diarrhea. 23:14 The patient presents to the emergency department with nausea, vomiting, diarrhea, that sharon is intermittent. Onset: The symptoms/episode began/occurred 1 day(s) ago. Possible causes: unknown. The symptoms are aggravated by nothing. The symptoms are alleviated by nothing. Associated signs and symptoms: Pertinent positives: diarrhea, nausea, vomiting. Severity of symptoms: At their worst the symptoms were mild in the emergency department the symptoms are unchanged. The patient has not experienced similar symptoms in the past. Historical: - Allergies: 20:34 Sulfa (Sulfonamide Antibiotics); vc1 - PMHx: 20:34 Diverticulitis; Hyperlipidemia; Hypertension; vc1 - PSHx: 20:34 Total abdominal hysterectomy; Appendectomy; colon resection; vc1 20:35 Cholecystectomy; vc1 - Immunization history:: Client reports receiving the 2nd dose of the Covid vaccine, booster; Pfizer. - Social history:: Smoking status: Patient denies any tobacco usage or history of. ROS: 23:15 Constitutional: Negative for fever, chills, and weight loss, Eyes: Negative for injury, sharon pain, redness, and discharge, ENT: Negative for injury, pain, and discharge, Neck: Negative for injury, pain, and swelling, Cardiovascular: Negative for chest pain, palpitations, and edema, Respiratory: Negative for shortness of breath, cough, wheezing, and pleuritic chest pain, Back: Negative for injury and pain, : Negative for injury, bleeding, discharge, and swelling, MS/Extremity: Negative for injury and deformity, Skin: Negative for injury, rash, and discoloration, Neuro: Negative for headache, weakness, numbness, tingling, and seizure, Psych: Negative for depression, anxiety, suicide ideation, homicidal ideation, and hallucinations, Allergy/Immunology: Negative for hives, rash, and allergies, Endocrine: Negative for neck swelling, polydipsia, polyuria, polyphagia, and marked weight changes, Hematologic/Lymphatic: Negative for swollen nodes, abnormal bleeding, and unusual bruising. 23:15 Abdomen/GI: Positive for abdominal pain, nausea and vomiting, diarrhea, abdominal cramps. Exam: 23:15 Constitutional: This is a well developed, well nourished patient who is awake, alert, sharon and in no acute distress. Head/Face: Normocephalic, atraumatic. Eyes: Pupils equal round and reactive to light, extra-ocular motions intact. Lids and lashes normal. Conjunctiva and sclera are non-icteric and not injected. Cornea within normal limits. Periorbital areas with no swelling, redness, or edema. ENT: Nares patent. No nasal discharge, no septal abnormalities noted. Tympanic membranes are normal and external auditory canals are clear. Oropharynx with no redness, swelling, or masses, exudates, or evidence of obstruction, uvula midline. Mucous membranes moist. Neck: Trachea midline, no thyromegaly or masses palpated, and no cervical lymphadenopathy. Supple, full range of motion without nuchal rigidity, or vertebral point tenderness. No Meningismus. Chest/axilla: Normal chest wall appearance and motion. Nontender with no deformity. No lesions are appreciated. Cardiovascular: Regular rate and rhythm with a normal S1 and S2. No gallops, murmurs, or rubs. Normal PMI, no JVD. No pulse deficits. Respiratory: Lungs have equal breath sounds bilaterally, clear to auscultation and percussion. No rales, rhonchi or wheezes noted. No increased work of breathing, no retractions or nasal flaring. Abdomen/GI: Soft, non-tender, with normal bowel sounds. No distension or tympany. No guarding or rebound. No evidence of tenderness throughout. Back: No spinal tenderness. No costovertebral tenderness. Full range of motion. Female : Normal external genitalia. Skin: Warm, dry with normal turgor. Normal color with no rashes, no lesions, and no evidence of cellulitis. MS/ Extremity: Pulses equal, no cyanosis. Neurovascular intact. Full, normal range of motion. Neuro: Awake and alert, GCS 15, oriented to person, place, time, and situation. Cranial nerves II-XII grossly intact. Motor strength 5/5 in all extremities. Sensory grossly intact. Cerebellar exam normal. Normal gait. Psych: Awake, alert, with orientation to person, place and time. Behavior, mood, and affect are within normal limits. 23:15 ECG was reviewed by the Attending Physician. Vital Signs: 20:32 BP 112 / 64; Pulse 115; Resp 16; Temp 99; Pulse Ox 96% ; Weight 64.41 kg; Height 5 ft. vc1 5 in. ; Pain 0/10; 21:30 BP 132 / 73; Pulse 91; Resp 17 S; Pulse Ox 96% on R/A; ha1 22:30 BP 120 / 70; Pulse 91; Resp 17 S; Pulse Ox 96% on R/A; ha1 23:30 BP 123 / 72; Pulse 63; Resp 17 S; Pulse Ox 96% on R/A; ha1 20:32 Body Mass Index 23.63 (64.41 kg, 165.1 cm) vc1 20:32 Pain Scale: Adult vc1 MDM: 20:42 Patient medically screened. [facility] 23:17 Differential diagnosis: Nonspecific abd pain, gastritis, pancreatitis, appendicitis, sharon diverticulitis, viral gastroenteritis, gastroenteritis. Data reviewed: vital signs, nurses notes, lab test result(s), EKG, radiologic studies, CT scan, plain films. Consideration of Admission/Observation Escalation of care including admission/observation considered. I considered the following discharge prescriptions or medication management in the emergency department Medications were administered in the Emergency Department. See MAR. Independent interpretation of the following test(s) in the Emergency Department EKG: See my EKG interpretation above. Test considered but Not performed: Ultrasound no abd us. Historians other than the Patient: Spouse/Significant Other: , inforfomed. Care significantly affected by the following chronic conditions: Hypertension, diverticulitis, hyperlipid. 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 02/21 20:23 Order name: Basic Metabolic Panel; Complete Time: 23:10 sharon 02/21 20:23 Order name: CBC with Diff; Complete Time: 23:10 [facility] 02/21 20:23 Order name: LFT's; Complete Time: 23:10 [facility] 02/21 20:23 Order name: Magnesium; Complete Time: 23:10 [facility] 02/21 20:23 Order name: NT PRO-BNP; Complete Time: 23:10 [facility] 02/21 20:23 Order name: PT-INR; Complete Time: 23:10 [facility] 02/21 20:23 Order name: Troponin HS; Complete Time: 23:10 [facility] 02/21 20:23 Order name: Lipase; Complete Time: 23:10 [facility] 02/21 20:23 Order name: SARS RAPID; Complete Time: 23:10 [facility] 02/21 20:23 Order name: Flu; Complete Time: 23:10 [facility] 02/21 20:23 Order name: XRAY Chest (1 view); Complete Time: 23:10 [facility] 02/21 20:23 Order name: CT Abd/Pelvis - Without Contrast; Complete Time: 21:27 [facility] 02/21 20:23 Order name: EKG; Complete Time: 20:24 [facility] 02/21 20:23 Order name: Cardiac monitoring; Complete Time: 21:45 [facility] 02/21 20:23 Order name: EKG - Nurse/Tech; Complete Time: 21:46 [facility] 02/21 20:23 Order name: IV Saline Lock; Complete Time: 21:46 [facility] 02/21 20:23 Order name: Labs collected and sent; Complete Time: 21:46 [facility] 02/21 20:23 Order name: O2 Per Protocol; Complete Time: 21:46 [facility] 02/21 20:23 Order name: O2 Sat Monitoring; Complete Time: 21:46 [facility] EC:15 Rate is 65 beats/min. Rhythm is regular. QRS [place] is Normal. SD interval is normal. QRS sharon interval is normal. QT interval is normal. No Q waves. T waves are Normal. No ST changes noted. Clinical impression: NSR w/ Non-specific ST/T Changes and No evidence of ischemia. Interpreted by me. Reviewed by me. Administered Medications: 21:50 Drug: NS 0.9% IV 1000 ml Route: IV; Rate: 1 bolus; Site: right antecubital; ha1 21:50 Drug: Ondansetron IVP 4 mg Route: IVP; Site: right antecubital; ha1 23:50 Drug: Potassium PO Effervescent Tablet 25 mEq Route: PO; ha1 02/22 00:05 Follow up: Response: No adverse reaction ha1 Disposition Summary: 02/21/23 23:21 Discharge Ordered Location: Home [facility] Problem: new sharon Symptoms: have improved sharon Condition: Stable sharon Diagnosis - Vomiting sharon - Diarrhea, unspecified sharon - Other viral enteritis sharon - Hypokalemia sharon Followup: sharon - With: Jai Hall MD - When: 2 - 3 days - Reason: Recheck today's complaints, Continuance of care, Re-evaluation by your physician Followup: sharon - With: Mack Luu MD - When: 2 - 3 days - Reason: Recheck today's complaints, Continuance of care, Re-evaluation by your physician Discharge Instructions: - Discharge Summary Sheet sharon - Food Choices to Help Relieve Diarrhea, Adult sharon - Diarrhea, Adult sharon - Potassium Content of Foods sharon - Diarrhea, Adult, [id number] sharon - Hypokalemia sharon - Vomiting, Adult sharon Forms: - Medication Reconciliation Form [facility] - Thank You Letter sharon - Antibiotic Education sharon - Prescription Opioid Use sharon - Patient Portal Instructions [facility] - Leadership Thank You Letter [facility] Prescriptions: - ondansetron 4 mg Oral Tablet,disintegrating - take 2 tablet by ORAL route every 6-8 hours as needed for nausea and vomiting; sharon 20 tablet; Refills: 0, Product Selection Permitted - promethazine 25 mg Rectal suppository - insert 1 suppository by RECTAL route every 6 hours as needed for sedation; 15 sharon suppository; Refills: 0, Product Selection Permitted - Cipro 250 mg Oral Tablet - take 1 tablet by ORAL route every 12 hours; 10 tablet; Refills: 0, Product sharon Selection Permitted Signatures: Dispatcher [employer] Oscar Lopez MD MD cha Attema, Lee, MANAGER SHIPPING-C MANAGER SHIPPING-Cla1 Michelle Iglesias, RN RN vc1 Claudia Monroe, RN RN ha1
--- NOTE | 2023-02-21 23:22 | ER ---
Nurse's Notes [facility] Name: Sarah Rodriguez Age: 77 yrs Sex: Female : 1945 Arrival Date: 02/21/2023 Time: 20:02 Bed 6 Private MD: Jai Hall T Diagnosis: Vomiting;Diarrhea, unspecified;Other viral enteritis;Hypokalemia Presentation: 02/21 20:32 Chief complaint: Patient states: Severe vomiting and diarrhea all day. I've lost a lot vc1 of fluids. Coronavirus screen: Client denies travel out of the [place] in the last 14 days. diarrhea, nausea, vomiting. Client presents with at least one sign or symptom that may indicate coronavirus-19. Ebola Screen: Patient negative for fever greater than or equal to 101.5 degrees Fahrenheit, and additional compatible Ebola Virus Disease symptoms Patient denies exposure to infectious person. Patient denies travel to an Ebola-affected area in the 21 days before illness onset. No symptoms or risks identified at this time. Initial Sepsis Screen: Does the patient meet any 2 criteria? Yes Does the patient have a suspected source of infection? No. Patient's initial sepsis screen is negative. Risk Assessment: Do you want to hurt yourself or someone else? Patient reports no desire to harm self or others. Onset of symptoms was February 21, 2023. 20:32 Method Of Arrival: Ambulatory vc1 20:32 Acuity: NARCISA 3 vc1 Historical: - Allergies: 20:34 Sulfa (Sulfonamide Antibiotics); vc1 - PMHx: 20:34 Diverticulitis; Hyperlipidemia; Hypertension; vc1 - PSHx: 20:34 Total abdominal hysterectomy; Appendectomy; colon resection; vc1 20:35 Cholecystectomy; vc1 - Immunization history:: Client reports receiving the 2nd dose of the Covid vaccine, booster; Pfizer. - Social history:: Smoking status: Patient denies any tobacco usage or history of. Screenin:38 [facility] ED Fall Risk Assessment (Adult) History of falling in the last 3 months, ha1 including since admission No falls in past 3 months (0 pts) Confusion or Disorientation No (0 pts) Intoxicated or Sedated No (0 pts) Impaired Gait No (0 pts) Mobility Assist Device Used No (0 pt) Altered Elimination No (0 pt) Score/Fall Risk Level 0 - 2 = Low Risk Oriented to surroundings, Maintained a safe environment. Abuse screen: Denies threats or abuse. Denies injuries from another. Nutritional screening: No deficits noted. Tuberculosis screening: No symptoms or risk factors identified. Assessment: 21:00 General: Appears comfortable, Behavior is calm, cooperative. Pain: Denies pain. Neuro: ha1 Level of Consciousness is awake, alert, obeys commands, Oriented to person, place, time, situation. Cardiovascular: Patient's skin is warm and dry. Cardiovascular: Respiratory: Airway is patent Respiratory effort is even, unlabored, Respiratory pattern is regular, symmetrical. GI: Abdomen is round non-distended, Bowel sounds present X 4 quads. Abd is soft and non tender X 4 quads. Reports diarrhea, nausea, vomiting. 22:46 Reassessment: Patient and/or family updated on plan of care and expected duration. Pain ha1 level reassessed. Patient is alert, oriented x 3, equal unlabored respirations, skin warm/dry/pink. Patient states feeling better. Patient states symptoms have improved. Vital Signs: 20:32 BP 112 / 64; Pulse 115; Resp 16; Temp 99; Pulse Ox 96% ; Weight 64.41 kg; Height 5 ft. vc1 5 in. ; Pain 0/10; 21:30 BP 132 / 73; Pulse 91; Resp 17 S; Pulse Ox 96% on R/A; ha1 22:30 BP 120 / 70; Pulse 91; Resp 17 S; Pulse Ox 96% on R/A; ha1 23:30 BP 123 / 72; Pulse 63; Resp 17 S; Pulse Ox 96% on R/A; ha1 20:32 Body Mass Index 23.63 (64.41 kg, 165.1 cm) vc1 20:32 Pain Scale: Adult vc1 ED Course: 20:08 Patient arrived in ED. mr 20:09 Jai Hall MD is Private Physician. mr 20:15 Oscar Dubon MD is Attending Physician. [facility] 20:34 Triage completed. vc1 20:34 Arm band placed on right wrist. vc1 20:35 Patient has correct armband on for positive identification. Placed in gown. Bed in low ha1 position. Call light in reach. Side rails up X 1. Adult w/ patient. 20:51 CT Abd/Pelvis - Without Contrast In Process Unspecified. EDMS 21:14 XRAY Chest (1 view) In Process Unspecified. EDMS 21:40 Inserted saline lock: 20 gauge in right antecubital area, using aseptic technique. ha1 Blood collected. 23:20 Jai Hall MD is Referral Physician. [facility] 23:20 Mack Luu MD is Referral Physician. [facility] 02/22 00:00 Provided Education on: follow ups and medication administration . ha1 00:00 No provider procedures requiring assistance completed. ha1 00:00 IV discontinued, intact, bleeding controlled, No redness/swelling at site. Pressure ha1 dressing applied. Administered Medications: 02/21 21:50 Drug: NS 0.9% IV 1000 ml Route: IV; Rate: 1 bolus; Site: right antecubital; ha1 21:50 Drug: Ondansetron IVP 4 mg Route: IVP; Site: right antecubital; ha1 23:50 Drug: Potassium PO Effervescent Tablet 25 mEq Route: PO; ha1 02/22 00:05 Follow up: Response: No adverse reaction ha1 Medication: 00:00 VIS not applicable for this client. ha1 Outcome: 02/21 23:21 Discharge ordered by . [facility] 02/22 00:00 Condition: stable ha1 00:00 Discharged to home via wheelchair. ha1 00:00 Discharge instructions given to patient, family, Instructed on discharge instructions, follow up and referral plans. medication usage, Demonstrated understanding of instructions, follow-up care, medications. 00:05 Patient left the ED. ha1 Signatures: Dispatcher [employer] [facility] Oscar Dubon MD MD cha Rivera, Mary mr Michelle Iglesias RN RN 1 Claudia Monroe RN RN ha1 Corrections: (The following items were deleted from the chart) 07:02 00:20 No provider procedures requiring assistance completed. ha1 ha1
[2023-02-22 00:29] VITALS: TEMP 99; O2SAT 96
[2023-02-22 00:37] VITALS: BP 132/73
--- NOTE | 2023-02-23 16:50 | EKG ---
Test Date: 2023-02-21 Test Time: 21:28:38 Margarine Maker: KASH MEASUREMENT RESULTS: Intervals: Rate: 95 ID: [id number] QRSD: 76 QT: 346 QTc: 434 [place]: P: 66 ID: [id number] QRS: 48 T: 71 INTERPRETIVE STATEMENTS: Normal sinus rhythm Normal ECG Compared to ECG 08/14/2012 17:13:41 No significant changes Electronically Signed On 02-23-23 16:45:14 CDT by Tj Luo
== END 2023-02-22 00:05 | disposition home or self-care (01) ==
LOC: ER 20:02
DX: A08.39 Other viral enteritis (principal); E87.6 Hypokalemia; R19.7 Diarrhea, unspecified; I10 Essential (primary) hypertension; Z20.822 Contact with and (suspected) exposure to COVID-19; Z88.2 Allergy status to sulfonamides
CPT/HCPCS: 93005; 85025; 80048; 36415; 83735; 85610; 80076; 84484; 83690; 83880; 87804 ×2; 74176; 71045; 96374; 99284; 87811; J2405; J7030

== ENCOUNTER 2023-09-29 15:10 | Emergency (ER) | payer OTHER ==
--- NOTE | 2023-09-29 16:04 | RAD REPORT ---
EXAM DESCRIPTION: Roderick Single View09/29/2023 3:51 pm CLINICAL HISTORY: Cough COMPARISON: 2013 FINDINGS: Lungs are mildly to moderately hyperaerated. Scoliosis involves the spine The lungs appear clear of acute infiltrate. The heart is normal size IMPRESSION: No acute abnormalities displayed
[2023-09-29 16:41] LABS: Absolute Basophils 0.1 K/uL (0-0.5); Absolute Eosinophils 0.1 K/uL (0-0.5); Absolute Lymphocytes (CBC) 2.4 K/uL (0.7-4.9); Absolute Monocytes 1.1 K/uL (0.1-1.3); Absolute Neutrophil 8.4 K/uL (1.8-8.0); Basophils % 0.7 % (0-1.3); Eosinophils % 0.7 % (0-4.4); Hemoglobin 13.1 g/dL (12.0-15.0); Lymphocytes % 20.2 % (15.3-44.8); MCH 29.9 pg (27.0-35.0); MCHC 33.5 g/dL (32.0-36.0); MCV 89.3 fL (80-100); MPV 8.5 fL (7.6-11.3); Monocytes % 8.9 % (3.3-12.3); Neutrophils % 69.5 % (41.7-73.7); Platelets 485 thou/uL (152-406); RBC Red Blood Cell Count 4.37 M/uL (3.86-4.86); Red Cell Distribution Width 13.9 % (12.1-15.2)
[2023-09-29 16:45] LABS: PTT, Activated Partial Thromb 28.4 SECONDS (24.3-36.9)
[2023-09-29 17:05] LABS: SARS-CoV-2 Antigen CONTROL BLUE LINE VIS/BG OK; SARS-CoV-2 Antigen Rapid Res Negative (Negative)
[2023-09-29 17:11] LABS: Albumin 3.3 g/dL (3.4-5.0); Albumin/Globulin Ratio 0.7 (1.1-1.8); Anion Gap 9.4 mEq/L (5.0-15.0); Bilirubin Total 0.7 mg/dL (0.2-1.0); Globulin 4.5 g/dL (2.3-3.5); Potassium 3.4 mEq/L (3.5-5.1); Protein, Total 7.8 g/dL (6.4-8.2)
[2023-09-29] MEDS ORDERED: NA CHLORIDE 0.9% 500 ML ONE (17:56)
--- NOTE | 2023-09-29 18:25 | ER ---
Nurse's Notes [facility] Name: Sarah Rodriguez Age: 78 yrs Sex: Female : 1945 Arrival Date: 09/29/2023 Time: 15:10 Bed 5 Private MD: Jai Hall T Diagnosis: Cough Presentation: 09/28 15:37 Chief complaint: Patient states: Cough, congestion and fever for 2-3 weeks. Taking abx, nj1 steroids and breathing tx, not better. Coronavirus screen: Vaccine status: Patient reports receiving the 2nd dose of the covid vaccine. Ebola Screen: Patient denies travel to an Ebola-affected area in the 21 days before illness onset. Initial Sepsis Screen: Does the patient meet any 2 criteria? HR > 90 bpm. No. Patient's initial sepsis screen is negative. Does the patient have a suspected source of infection? No. Patient's initial sepsis screen is negative. Risk Assessment: Do you want to hurt yourself or someone else? Patient reports no desire to harm self or others. Onset of symptoms was September 2023. 15:37 Method Of Arrival: Ambulatory [facility] 15:37 Acuity: NARCISA 2 nj Historical: - Allergies: 15:40 Sulfa (Sulfonamide Antibiotics); nj1 - PMHx: 15:40 Diverticulitis; Hyperlipidemia; Hypertension; nj1 - PSHx: 15:40 Appendectomy; Cholecystectomy; colon resection; Total abdominal hysterectomy; nj1 - Immunization history:: Client reports receiving the 2nd dose of the Covid vaccine. - Infectious Disease History:: Denies. - Social history:: Smoking status: Patient denies any tobacco usage or history of. Screenin:10 [facility] ED Fall Risk Assessment (Adult) History of falling in the last 3 months, kc6 including since admission No falls in past 3 months (0 pts) Confusion or Disorientation No (0 pts) Intoxicated or Sedated No (0 pts) Impaired Gait No (0 pts) Mobility Assist Device Used No (0 pt) Altered Elimination No (0 pt) Score/Fall Risk Level 0 - 2 = Low Risk. Abuse screen: Denies threats or abuse. Denies injuries from another. Nutritional screening: No deficits noted. Tuberculosis screening: No symptoms or risk factors identified. Assessment: 16:45 General: Appears in no apparent distress. comfortable, well groomed, well developed, kc6 Behavior is calm, cooperative, appropriate for age, Reports fever for feeling ill for. Pain: Denies pain. Neuro: Level of Consciousness is awake, alert, obeys commands, Oriented to person, place, time, situation, Appropriate for age. Cardiovascular: Denies chest pain, Heart tones S1 S2 present Capillary refill < 3 seconds Rhythm is sinus tachycardia. Respiratory: Airway is patent Trachea midline Respiratory effort is even, unlabored, Respiratory pattern is regular, symmetrical, Breath sounds are clear bilaterally. GI: No signs and/or symptoms were reported involving the gastrointestinal system. : No signs and/or symptoms were reported regarding the genitourinary system. EENT: Reports nasal congestion. Derm: No signs and/or symptoms reported regarding the dermatologic system. Skin is intact, is healthy with good turgor, Skin is pink, warm \T\ dry. Musculoskeletal: No signs and/or symptoms reported regarding the musculoskeletal system. Circulation, motion, and sensation intact. Capillary refill < 3 seconds, Range of motion: intact in all extremities. 17:11 Reassessment: Patient appears in no apparent distress at this time. No changes from kc6 previously documented assessment. Patient and/or family updated on plan of care and expected duration. Pain level reassessed. Patient is alert, oriented x 3, equal unlabored respirations, skin warm/dry/pink. 18:06 Reassessment: Patient appears in no apparent distress at this time. No changes from kc6 previously documented assessment. Patient and/or family updated on plan of care and expected duration. Pain level reassessed. Patient is alert, oriented x 3, equal unlabored respirations, skin warm/dry/pink. 18:45 Reassessment: Patient appears in no apparent distress at this time. No changes from kc6 previously documented assessment. Patient and/or family updated on plan of care and expected duration. Pain level reassessed. Patient is alert, oriented x 3, equal unlabored respirations, skin warm/dry/pink. Vital Signs: 15:37 BP 118 / 67; Pulse 121; Resp 18; Temp 98.9(O); Pulse Ox 95% on R/A; Weight 63.5 kg; nj1 Height 5 ft. 5 in. ; 17:12 BP 102 / 57; Pulse 91; Resp 16 S; Pulse Ox 92% on R/A; kc6 15:37 Body Mass Index 23.30 (63.50 kg, 165.1 cm) [facility] ED Course: 15:12 Patient arrived in ED. mr 15:12 Jai Hall MD is Private Physician. mr 15:22 Ju Parra FNP-C is [facility]. kb 15:22 Joao Roberts MD is Attending Physician. kb 15:40 Triage completed. nj1 15:41 Arm band placed on right wrist. nj1 15:50 Juana Haynes, RN is Primary Nurse. kc6 15:53 Chest Single View XRAY In Process Unspecified. EDMS 15:56 Patient placed in an exam room, on a stretcher. ll1 17:09 Inserted saline lock: 20 gauge in right antecubital area, using aseptic technique. kc6 Blood collected. 17:10 Patient has correct armband on for positive identification. Placed in gown. Bed in low kc6 position. Call light in reach. Side rails up X2. Adult w/ patient. Client placed on continuous cardiac and pulse oximetry monitoring. NIBP monitoring applied. pockets and pieces necktie operator on. Door closed. Noise minimized. Warm blanket given. 19:03 No provider procedures requiring assistance completed. IV discontinued, intact, kc6 bleeding controlled, No redness/swelling at site. Pressure dressing applied. Administered Medications: 18:06 Drug: NS 0.9% IV 500 ml IV at bolus once Route: IV; Rate: bolus; Site: right kc6 antecubital; 19:03 Follow up: Response: No adverse reaction; IV Status: Completed infusion; IV Intake: kc6 500ml Medication: 19:03 VIS not applicable for this client. kc6 Intake: 19:03 IV: 500ml; Total: 500ml. kc6 Outcome: 18:24 Discharge ordered by . kb 19:03 Discharged to home ambulatory, with significant other, kc6 19:03 Condition: good 19:03 Discharge instructions given to patient, significant other, Instructed on discharge instructions, follow up and referral plans. medication usage, Demonstrated understanding of instructions, follow-up care, medications, Prescriptions given X 1, 19:03 Patient left the ED. kc6 Signatures: Dispatcher [employer] EDTN Ju Parra FNP-C COLLAR SEPARATOR-Ckb Enriqueta Coleman, Reg Reg Aisha Bowles RN RN ll1 Juana Haynes, RN RN kc6 Lola Berg RN RN nj1 Corrections: (The following items were deleted from the chart) 15:41 15:40 Immunization history: Client reports having NOT received the Covid vaccine. nj1 nj1
--- NOTE | 2023-09-29 18:25 | EDPHYS ---
Physician Documentation [facility] Name: Sarah Rodriguez Age: 78 yrs Sex: Female : 1945 Arrival Date: 09/29/2023 Time: 15:10 Bed 5 Private MD: Jai Hall T ED Physician Joao Roberts HPI: 09/28 15:36 This 78 yrs old Female presents to ER via Unassigned with complaints of Congestion. kb 15:36 Pt is an 78 year old female who presents for cough and congestion for 2-3 months. kb Reports she has tried inhalers and prednisone. started on zithromax this week. States she is still having shortness of breath, cough and congestion. Reports fever intermittently. . Historical: - Allergies: 15:40 Sulfa (Sulfonamide Antibiotics); nj1 - PMHx: 15:40 Diverticulitis; Hyperlipidemia; Hypertension; nj1 - PSHx: 15:40 Appendectomy; Cholecystectomy; colon resection; Total abdominal hysterectomy; nj1 - Immunization history:: Client reports receiving the 2nd dose of the Covid vaccine. - Infectious Disease History:: Denies. - Social history:: Smoking status: Patient denies any tobacco usage or history of. ROS: 15:36 Constitutional: As per HPI kb Exam: 15:42 Constitutional: This is a well developed, well nourished patient who is awake, alert, kb and in no acute distress. Head/Face: Normocephalic, atraumatic. ENT: Moist Mucous membranes Cardiovascular: Regular rate Abdomen/GI: Soft, non-tender. No distention Skin: Warm, dry with normal turgor. Normal color. MS/ Extremity: Pulses equal, no cyanosis. Neurovascular intact. Full, normal range of motion. Neuro: Awake and alert, GCS 15, oriented to person, place, time, and situation. Moves all extremities. Normal gait. 15:42 Respiratory: the patient does not display signs of respiratory distress, Respirations: normal, Breath sounds: rhonchi, that are moderate, are heard in the right posterior upper lobe and right posterior middle lobe, Vital Signs: 15:37 BP 118 / 67; Pulse 121; Resp 18; Temp 98.9(O); Pulse Ox 95% on R/A; Weight 63.5 kg; nj1 Height 5 ft. 5 in. ; 17:12 BP 102 / 57; Pulse 91; Resp 16 S; Pulse Ox 92% on R/A; kc6 15:37 Body Mass Index 23.30 (63.50 kg, 165.1 cm) nj1 MDM: 15:22 Patient medically screened. kb 15:43 Data reviewed: vital signs, nurses notes. kb 18:24 Differential Diagnosis: Bronchitis Influenza Upper Respiratory Infection Pneumonia. kb Consideration of Admission/Observation Escalation of care including admission/observation considered. Admission considered, but resp even and unlabored. Pt in no distress, nontoxic in appearance.. Counseling: I had a detailed discussion with the patient and/or guardian regarding the historical points, exam findings, and any diagnostic results supporting the discharge/admit diagnosis, lab results, radiology results, the need for outpatient follow up, a family practitioner, to return to the emergency department if symptoms worsen or persist or if there are any questions or concerns that arise at home. 09/28 15:41 Order name: Blood Culture Adult (2) kb 09/28 15:41 Order name: CBC with Diff; Complete Time: 16:42 kb 09/28 15:41 Order name: CMP; Complete Time: 17:11 kb 09/28 15:41 Order name: Lactate w/ 2H reflex if indic.; Complete Time: 16:57 kb 09/28 15:41 Order name: Protime (+inr); Complete Time: 16:47 kb 09/28 15:41 Order name: Ptt, Activated; Complete Time: 16:47 kb 09/28 15:41 Order name: Flu; Complete Time: 17:11 kb 09/28 15:41 Order name: SARS-COV-2 Antigen Rapid; Complete Time: 17:06 kb 09/28 15:41 Order name: Chest Single View XRAY; Complete Time: 16:05 kb 09/28 15:41 Order name: EKG; Complete Time: 15:41 kb 09/28 15:41 Order name: Accucheck; Complete Time: 16:47 kb 09/28 15:41 Order name: Cardiac monitoring; Complete Time: 16:47 kb 09/28 15:41 Order name: EKG - Nurse/Tech; Complete Time: 16:47 kb 09/28 15:41 Order name: IV Saline Lock - Large Bore; Complete Time: 16:47 kb 09/28 15:41 Order name: Labs collected and sent; Complete Time: 16:47 kb 09/28 15:41 Order name: O2 Per Protocol; Complete Time: 15:51 kb 09/28 15:41 Order name: O2 Sat Monitoring; Complete Time: 15:51 kb 09/28 15:41 Order name: Vital Signs; Complete Time: 15:51 kb Administered Medications: 18:06 Drug: NS 0.9% IV 500 ml IV at bolus once Route: IV; Rate: bolus; Site: right kc6 antecubital; 19:03 Follow up: Response: No adverse reaction; IV Status: Completed infusion; IV Intake: kc6 500ml Disposition Summary: 09/29/23 18:24 Discharge Ordered Notes: Location: Home kb Condition: Stable kb Diagnosis - Cough kb Followup: kb - With: Emergency Department - When: As needed - Reason: Worsening of condition Followup: kb - With: Private Physician - When: 2 - 3 days - Reason: Recheck today's complaints, Continuance of care, Re-evaluation by your physician Discharge Instructions: - Discharge Summary Sheet kb - Cough, Adult, [id number] kb Forms: - Medication Reconciliation Form kb - Thank You Letter kb - Antibiotic Education kb - Prescription Opioid Use kb - Patient Portal Instructions kb - Leadership Thank You Letter kb Prescriptions: - Augmentin 875-125 mg Oral Tablet - take 1 tablet ORAL route every 12 hours for 10 days; 20 tablet; Refills: 0, kb Product Selection Permitted Signatures: Dispatcher [employer] EDJu Hankins, [employer]ARE[employer]BUTION SPECIALIST-C MATEUS-Juana Gonzalez RN RN kc6 Lola Berg RN RN nj1 Corrections: (The following items were deleted from the chart) 15:40 15:36 Pt is an 78 year old female who presents for cough and congestion for 2-3 weeks. kb Reports she has tried inhalers and prednisone. started on zithromax this week. States she is still having shortness of breath, cough and congestion. Reports fever intermittently. . kb 15:41 15:40 Immunization history: Client reports having NOT received the Covid vaccine. nj1 nj1 18:25 18:24 Consideration of Admission/Observation Escalation of care including kb admission/observation considered. kb
[2023-09-29 21:00] VITALS: BP 102/57; TEMP 98.9; O2SAT 92
--- NOTE | 2023-09-30 17:47 | EKG ---
Test Date: 2023-09-29 Test Time: 16:09:59 Medical Appointment Scheduler: ADITI MEASUREMENT RESULTS: Intervals: Rate: 109 RI: 150 QRSD: 68 QT: 320 QTc: 430 [place]: P: 80 RI: 150 QRS: 96 T: 69 INTERPRETIVE STATEMENTS: Sinus tachycardia Rightward axis Cannot rule out Anterior infarct, age undetermined Abnormal ECG Compared to ECG 02/21/2023 21:28:38 Right-axis deviation now present Myocardial infarct finding now present Sinus rhythm no longer present Electronically Signed On 09-30-23 17:46:14 CDT by Tj Luo
== END 2023-09-29 19:03 | disposition home or self-care (01) ==
LOC: ER 15:10
DX: R05.9 Cough, unspecified (principal); Z11.52 Encounter for screening for COVID-19; Z88.2 Allergy status to sulfonamides
CPT/HCPCS: 87040 ×2; 85025; 36415; 85610; 83605; 85730; 80053; 87804 ×2; 71045; 87811; J7040; 93005